=== PATIENT | female | born 1950 | race Caucasian/White ===

== ENCOUNTER 2017-01-26 10:45 | Inpatient (IN) ==
[2017-01-26] MEDS ORDERED: NS 2,000 ML ONE (11:17)
[2017-01-26] MEDS ORDERED: NS 1,000 ML IV ONE ×2 (11:26→12:39)
[2017-01-26 11:38] LABS: MANUAL DIFF NEEDED? NO
--- NOTE | 2017-01-26 11:40 | Diag Imaging Result Doc PS360 ---
EXAM: CHEST-PORTABLE HISTORY: SOB/low oxygen sat TECHNIQUE: AP portable upright at 1130 COMMENT: There is alveolar opacity in both the apical region of the right upper lobe and in the right lower lobe. The left lung is essentially unchanged in appearance since 11/22/2015. IMPRESSION: Bronchopneumonia on the right in both the upper and lower lobes. Electronically signed by Rodriguez Blnakenship 01/26/2017 11:38 AM
[2017-01-26 11:41] LABS: BASO% 0.2 % (0.0-0.8); EOS# 0.03 X1000 (0.0-0.7); EOS% 0.3 % (0.0-10.0); HEMATOCRIT 41.2 % (37.0-47.0); HEMOGLOBIN 13.6 g/dL (12.0-16.0); IMM GRAN# 0.02 X1000 (0.0-0.04); IMM GRAN% 0.2 % (0.0-0.5); LYMPH# 0.98 X1000 (1.2-3.4); LYMPH% 10.5 % (20.5-51.1); MCH 30.4 PG (27-31); MONO# 1.16 X1000 (0.11-0.59); MONO% 12.4 % (1.7-9.3); MPV 9.3 FL (7.4-10.4); NEUT% 76.4 % (42.2-75.2); PLT 484 X1000 (130-400); RBC 4.48 XMIL (4.2-5.4)
[2017-01-26 11:54] LABS: INR 0.96; PROTIME 10.1 Seconds (9.2-11.7); PTT 29.4 Seconds (22.0-36.0)
[2017-01-26 12:06] LABS: AGAP 12; ALKALINE PHOSPHATASE 77 U/L (32-104); BUN 25 mg/dL (8-22); CHLORIDE 101 mmol/L (98-107); CK PROFILE 167 U/L (24-173); COSMO 277; GOT 18 U/L (10-30); GPT 16 U/L (10-36); SODIUM 136 mmol/L (136-145); TCO2 23 mmol/L (25-35); TOTAL BILIRUBIN 0.36 mg/dL (0.20-1.00); TOTAL PROTEIN 6.1 g/dL (6.3-8.3)
[2017-01-26] MEDS ORDERED: ROCEPHIN 2 GM in NS 50 ML IV ONE (12:35)
[2017-01-26] MEDS ORDERED: ATROVENT NEB INH ONE (12:39)
[2017-01-26] MEDS ORDERED: XOPENEX NEB INH ONE (12:39)
[2017-01-26] MEDS ORDERED: KLOR-CON PO ONE (12:40)
[2017-01-26] MEDS ORDERED: NS NEB INH SCH (12:45)
[2017-01-26] MEDS ORDERED: NS 50 ML ONE (12:54)
[2017-01-26 12:56] LABS: ALLEN TEST YES; BE -4.4 mmoll (-3.0-3.0); BLOOD TYPE ARTERIAL; DRAW SITE R RADIAL; PCO2(98.6) 39 mmHg (35-45); PO2(98.6) 50 mmHg (60-100); SAMPLE BLOOD
[2017-01-26 12:58] LABS: MODALITY CANNULA
[2017-01-26 12:59] LABS: pH(98.6) 7.34 (7.35-7.45)
[2017-01-26] MEDS ORDERED: KLOR-CON ONE (13:08)
[2017-01-26] MEDS ORDERED: NICODERM PATCH ONE (14:04)
[2017-01-26] MEDS: NICODERM PATCH TD SCH (14:06)
--- NOTE | 2017-01-26 15:36 | EKG Report ---
Test Performed on : 01/26/2017 3:10:06 PM Test Reason : baseline rythm analysis Blood Pressure : / mmHG Vent. Rate : 076 BPM Atrial Rate : 076 BPM P-R Int : 106 ms QRS Dur : 080 ms QT Int : 332 ms P-R-T Axes : -03 076 049 degrees QTc Int : 373 ms Sinus rhythm. with short MO Nonspecific T wave abnormality Abnormal ECG When compared with ECG of 13-DEC-2014 17:06, premature supraventricular complexes. are no longer present T wave inversion no longer evident in Anterior leads Nonspecific T wave abnormality, worse in Lateral leads QT has shortened Unconfirmed Result
[2017-01-26] MEDS ORDERED: TYLENOL PO PRN (15:42)
[2017-01-26] MEDS: ATROVENT NEB INH SCH ×2 (16:55→21:00)
[2017-01-26] MEDS: XOPENEX NEB INH SCH ×2 (17:10→21:00)
[2017-01-26] MEDS: PULMICORT INH SCH (19:20)
[2017-01-26] MEDS: MUCOMYST 20% INH SCH (19:20)
[2017-01-26] MEDS: DESYREL PO SCH (21:11)
[2017-01-26] MEDS: PRAVACHOL PO SCH (21:11)
[2017-01-26] MEDS: KLONOPIN PO PRN (21:20)
[2017-01-27] MEDS: TRUSOPT 2% OPH SOLN BOTH EYES SCH ×4 (02:07→17:23)
[2017-01-27] MEDS: XOPENEX NEB INH SCH ×4 (03:08→22:15)
[2017-01-27] MEDS: ATROVENT NEB INH SCH ×4 (03:08→22:15)
[2017-01-27 04:31] LABS: URINE MICRO REVIEW NEEDED? NO; URINE SOURCE CLEAN CATCH
[2017-01-27 04:34] LABS: BILIRUBIN URINE NEGATIVE (NEGATIVE); BLOOD URINE TRACE (NEGATIVE); COLOR YELLOW; GLUCOSE URINE NEGATIVE (NEGATIVE); LEUKOCYTES URINE SMALL (NEGATIVE); NITRITE URINE NEGATIVE (NEGATIVE); PH URINE 6.5; PROTEIN URINE TRACE mg/dL (NEGATIVE); SP GRAVITY URINE 1.017; TURBIDITY URINE CLEAR (CLEAR); UROBILINOGEN URINE NORMAL (NORMAL)
[2017-01-27 04:35] LABS: UR EPITHELIAL CELLS <10 /HPF (<10); URINE BACTERIA NEGATIVE /HPF; URINE CULTURE NEEDED? YES; URINE RBC <10 /HPF (<10); URINE WBC <10 /HPF (<10)
[2017-01-27 05:21] LABS: MANUAL DIFF NEEDED? NO
[2017-01-27 05:31] LABS: BASO% 0.2 % (0.0-0.8); EOS% 0.9 % (0.0-10.0); HEMOGLOBIN 12.7 g/dL (12.0-16.0); IMM GRAN# 0.03 X1000 (0.0-0.04); IMM GRAN% 0.3 % (0.0-0.5); LYMPH# 0.67 X1000 (1.2-3.4); LYMPH% 5.9 % (20.5-51.1); MCH 30.8 PG (27-31); MCHC 33.4 g/dL (33-37); MCV 92.2 FL (81-99); MONO# 0.92 X1000 (0.11-0.59); MONO% 8.1 % (1.7-9.3); MPV 9.3 FL (7.4-10.4); NEUT% 84.6 % (42.2-75.2); PLT 496 X1000 (130-400); RBC 4.12 XMIL (4.2-5.4)
[2017-01-27 05:49] LABS: AGAP 12; ALBUMIN 2.7 g/dL (3.5-5.0); ALKALINE PHOSPHATASE 67 U/L (32-104); BUN 15 mg/dL (8-22); CALCIUM 8.3 mg/dL (8.8-10.2); CHLORIDE 106 mmol/L (98-107); COSMO 282; GOT 19 U/L (10-30); GPT 15 U/L (10-36); POTASSIUM 3.3 mmol/L (3.5-5.1); SODIUM 141 mmol/L (136-145); TCO2 23 mmol/L (25-35); TOTAL BILIRUBIN 0.18 mg/dL (0.20-1.00); TOTAL PROTEIN 5.5 g/dL (6.3-8.3)
[2017-01-27] MEDS: PRILOSEC PO SCH (06:08)
[2017-01-27] MEDS ORDERED: LOVENOX SUBQ SCH ×3 (08:00→10:52)
[2017-01-27] MEDS ORDERED: KLOR-CON PO ONE (08:25)
[2017-01-27] MEDS: PULMICORT INH SCH ×2 (09:17→19:15)
[2017-01-27] MEDS: MUCOMYST 20% INH SCH ×2 (09:17→19:15)
[2017-01-27] MEDS: CELEXA PO SCH (10:45)
[2017-01-27] MEDS: NICODERM PATCH TD SCH ×2 (10:46→11:02)
[2017-01-27] MEDS ORDERED: ROCEPHIN 1 GM in NS 50 ML IV SCH (12:00)
[2017-01-27] MEDS ORDERED: ZITHROMAX 500 MG/NS 500 MG/250 ML IVPB IV SCH (12:00)
[2017-01-27] MEDS: PRAVACHOL PO SCH (20:45)
[2017-01-27] MEDS: DESYREL PO SCH (20:46)
[2017-01-28] MEDS: ATROVENT NEB INH SCH (03:15)
[2017-01-28] MEDS: XOPENEX NEB INH SCH (03:15)
[2017-01-28] MEDS: PRILOSEC PO SCH ×2 (05:40→06:28)
[2017-01-28 05:43] LABS: BASO% 0.2 % (0.0-0.8); EOS# 0.05 X1000 (0.0-0.7); EOS% 0.4 % (0.0-10.0); HEMATOCRIT 37.7 % (37.0-47.0); HEMOGLOBIN 12.6 g/dL (12.0-16.0); IMM GRAN# 0.04 X1000 (0.0-0.04); IMM GRAN% 0.4 % (0.0-0.5); LYMPH# 0.82 X1000 (1.2-3.4); LYMPH% 7.3 % (20.5-51.1); MANUAL DIFF NEEDED? YES; MCH 30.5 PG (27-31); MCHC 33.4 g/dL (33-37); MCV 91.3 FL (81-99); MONO# 0.73 X1000 (0.11-0.59); MONO% 6.5 % (1.7-9.3); NEUT% 85.2 % (42.2-75.2); PLT 523 X1000 (130-400); RBC 4.13 XMIL (4.2-5.4)
[2017-01-28 05:44] LABS: HEMOGLOBIN A1C 5.3 % (4.8-6.0)
[2017-01-28 06:10] LABS: AGAP 10; BUN 7 mg/dL (8-22); CALCIUM 8.7 mg/dL (8.8-10.2); CHLORIDE 104 mmol/L (98-107); COSMO 279; POTASSIUM 3.7 mmol/L (3.5-5.1); SODIUM 139 mmol/L (136-145); TCO2 25 mmol/L (25-35)
[2017-01-28 06:46] LABS: BANDS 8 % (0-1); LYMPHS 8 % (21-51); MONO 6 % (1-9)
[2017-01-28 08:49] VITALS: BP 165/112
[2017-01-28] MEDS: KLONOPIN PO PRN (09:01)
[2017-01-28] MEDS: CELEXA PO SCH (09:02)
[2017-01-28] MEDS: TRUSOPT 2% OPH SOLN BOTH EYES SCH (09:03)
== END 2017-01-28 09:36 | disposition left against medical advice (07) ==
LOC: ED 10:45 → 4N 15:31
PROVIDERS: ATTEND Internal Medicine

== ENCOUNTER 2019-04-12 12:49 | Inpatient (IN) ==
[2019-04-12 13:11] LABS: BLOOD TYPE ARTERIAL; HCO3-(ACT) 25.1 mmoll (20.0-26.0); METHB 0.9 % (0.0-1.5); O2(CT) 18.4 mL/dL (15.0-23.0); PO2(98.6) 237 mmHg (60-100); SAMPLE BLOOD; THB 15.9 g/dL (11.5-17.4)
[2019-04-12] MEDS ORDERED: DUONEB (A & A) INH ONE (13:17)
[2019-04-12 13:48] LABS: PCO2(98.6) 72 mmHg (35-45); pH(98.6) 7.24 (7.35-7.45)
[2019-04-12 13:49] LABS: ALLEN TEST YES; MODALITY NRB; O2HB 79.9 % (95.0-99.0)
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
[2019-04-12 14:19] LABS: BASO# 0.03 X1000 (0.0-0.2); BASO% 0.2 % (0.0-0.8); EOS# 0.09 X1000 (0.0-0.7); EOS% 0.6 % (0.0-10.0); HEMATOCRIT 47.3 % (37.0-47.0); HEMOGLOBIN 15.2 g/dL (12.0-16.0); IMM GRAN# 0.03 X1000 (0.0-0.04); IMM GRAN% 0.2 % (0.0-0.5); LYMPH# 1.36 X1000 (1.2-3.4); LYMPH% 9.6 % (20.5-51.1); MCH 31.3 PG (27-31); MCHC 32.1 g/dL (33-37); MCV 97.3 FL (81-99); MONO# 1.05 X1000 (0.11-0.59); MONO% 7.4 % (1.7-9.3); MPV 9.4 FL (7.4-10.4); NEUT# 11.58 X1000 (1.4-6.5); PLT 283 X1000 (130-400); RBC 4.86 XMIL (4.2-5.4); RDW 15.1 % (11.5-14.5); WBC 14.14 X1000 (4.8-10.8)
[2019-04-12 14:42] LABS: AGAP 11; ALBUMIN 4.3 g/dL (3.5-5.0); ALKALINE PHOSPHATASE 98 U/L (32-104); BUN 19 mg/dL (8-22); CALCIUM 8.9 mg/dL (8.8-10.2); CHLORIDE 102 mmol/L (98-107); COSMO 289; ESTIMATED GFR 55; GLUCOSE 192 mg/dL (70-104); GOT 26 U/L (10-30); GPT 21 U/L (10-36); POTASSIUM 4.6 mmol/L (3.5-5.1); SODIUM 141 mmol/L (136-145); TCO2 28 mmol/L (25-35); TOTAL BILIRUBIN < 0.15 mg/dL (0.20-1.00); TOTAL PROTEIN 6.9 g/dL (6.3-8.3)
[2019-04-12] MEDS ORDERED: ZOFRAN IV PRN (14:42)
--- NOTE | 2019-04-12 14:42 | Diag Imaging Result Doc PS360 ---
CHEST-PORTABLE - 04/12/2019 INDICATION: sob COMPARISON: 06/11/2018 FINDINGS: Stable COPD changes. No infiltrates or edema. Stable benign granulomas in the lateral left lung base. IMPRESSION: No acute disease or change from prior. Electronically signed by Morgan Skinner 04/12/2019 2:39 PM
[2019-04-12] MEDS ORDERED: NS 1,000 ML IV SCH (14:45)
[2019-04-12] MEDS ORDERED: DUONEB (A & A) INH PRN ×2 (14:46→17:53)
[2019-04-12 15:20] LABS: URINE SOURCE CATH
[2019-04-12 15:26] LABS: BILIRUBIN URINE NEGATIVE (NEGATIVE); BLOOD URINE NEGATIVE (NEGATIVE); COLOR YELLOW; GLUCOSE URINE NEGATIVE (NEGATIVE); KETONE URINE NEGATIVE (NEGATIVE); LEUKOCYTES URINE NEGATIVE (NEGATIVE); NITRITE URINE NEGATIVE (NEGATIVE); PH URINE 5.5; PROTEIN URINE TRACE mg/dL (NEGATIVE); SP GRAVITY URINE 1.025; TURBIDITY URINE CLEAR (CLEAR); UROBILINOGEN URINE 3 mg/dL (NORMAL)
[2019-04-12 15:27] LABS: UR EPITHELIAL CELLS <10 /HPF (<10); URINE BACTERIA NEGATIVE /HPF; URINE RBC <10 /HPF (<10); URINE WBC <10 /HPF (<10)
[2019-04-12] MEDS ORDERED: DUONEB (A & A) INH SCH (15:30)
[2019-04-12 15:33] LABS: UR AMPHETAMINES QUAL NONE DETECTED (NONE DETECT); UR BARBITUATES QUAL NONE DETECTED (NONE DETECT); UR BENZODIAZEPIN QUAL PRESUMPTIVE POSITIVE (NONE DETECT); UR CANNABINOIDS QUAL PRESUMPTIVE POSITIVE (NONE DETECT); UR COCAINE QUAL NONE DETECTED (NONE DETECT); UR METHADONE QUAL NONE DETECTED (NONE DETECT); UR METHAMPHETAMINE QUAL NONE DETECTED (NONE DETECT); UR OPIATES QUAL NONE DETECTED (NONE DETECT); UR OXYCODONE QUAL NONE DETECTED (NONE DETECT); UR PCP QUAL NONE DETECTED (NONE DETECT); UR PROPOXYPHENE QUAL NONE DETECTED (NONE DETECT); UR TCA QUAL NONE DETECTED (NONE DETECT)
[2019-04-12] MEDS ORDERED: HUMALOG (PARKWAY) SUBQ SCH (16:00)
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
[2019-04-12] MEDS: ZOFRAN IV PRN ×2 (18:30→22:36)
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
[2019-04-12 19:01] LABS: ALLEN TEST YES; BE 2.9 mmoll (-3.0-3.0); BLOOD TYPE ARTERIAL; METHB 0.6 % (0.0-1.5); O2HB 91.2 % (95.0-99.0); PO2(98.6) 234 mmHg (60-100); SAMPLE BLOOD; SAO2 99.5 % (95.0-100.0); pH(98.6) 7.21 (7.35-7.45)
[2019-04-12 19:05] LABS: MODALITY NRB; PCO2(98.6) 86 mmHg (35-45)
[2019-04-12] MEDS: DUONEB (A & A) INH SCH ×2 (19:26→23:45)
[2019-04-12] MEDS: NS 1,000 ML IV SCH ×2 (19:38→22:39)
[2019-04-12] MEDS: HUMALOG SUBQ SCH (20:29)
[2019-04-12 20:51] LABS: ALLEN TEST YES; BE 2.5 mmoll (-3.0-3.0); BLOOD TYPE ARTERIAL; HCO3-(ACT) 26.6 mmoll (20.0-26.0); METHB 0.9 % (0.0-1.5); O2(CT) 20.5 mL/dL (15.0-23.0); O2HB 90.3 % (95.0-99.0); PO2(98.6) 87 mmHg (60-100); SAMPLE BLOOD; SAO2 97.6 % (95.0-100.0); THB 16.1 g/dL (11.5-17.4); pH(98.6) 7.24 (7.35-7.45)
[2019-04-12 20:52] LABS: MODALITY VENTIMASK
[2019-04-12 20:56] LABS: PCO2(98.6) 77 mmHg (35-45)
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
[2019-04-13] MEDS: DUONEB (A & A) INH SCH ×6 (03:30→22:53)
[2019-04-13 04:09] LABS: ALLEN TEST YES; BE 1.2 mmoll (-3.0-3.0); BLOOD TYPE ARTERIAL; HCO3-(ACT) 25.7 mmoll (20.0-26.0); METHB 0.9 % (0.0-1.5); O2(CT) 20.3 mL/dL (15.0-23.0); O2HB 93.1 % (95.0-99.0); PO2(98.6) 90 mmHg (60-100); SAMPLE BLOOD; SAO2 97.6 % (95.0-100.0); THB 15.5 g/dL (11.5-17.4); pH(98.6) 7.21 (7.35-7.45)
[2019-04-13 04:22] LABS: MODALITY VENTIMASK; PCO2(98.6) 80 mmHg (35-45)
[2019-04-13 05:55] LABS: BASO# 0.03 X1000 (0.0-0.2); BASO% 0.2 % (0.0-0.8); EOS# 0.03 X1000 (0.0-0.7); EOS% 0.2 % (0.0-10.0); HEMATOCRIT 47.4 % (37.0-47.0); HEMOGLOBIN 14.6 g/dL (12.0-16.0); IMM GRAN# 0.06 X1000 (0.0-0.04); IMM GRAN% 0.4 % (0.0-0.5); LYMPH# 1.76 X1000 (1.2-3.4); LYMPH% 12.5 % (20.5-51.1); MCH 30.6 PG (27-31); MCHC 30.8 g/dL (33-37); MCV 99.4 FL (81-99); MONO# 1.07 X1000 (0.11-0.59); MONO% 7.6 % (1.7-9.3); MPV 9.8 FL (7.4-10.4); NEUT# 11.12 X1000 (1.4-6.5); NEUT% 79.1 % (42.2-75.2); PLT 265 X1000 (130-400); RBC 4.77 XMIL (4.2-5.4); WBC 14.07 X1000 (4.8-10.8)
[2019-04-13 06:00] LABS: AGAP 11; ALB/GLOB RATIO 1.6; ALBUMIN 3.6 g/dL (3.5-5.0); ALKALINE PHOSPHATASE 90 U/L (32-104); BUN 16 mg/dL (8-22); CALCIUM 8.2 mg/dL (8.8-10.2); CHLORIDE 101 mmol/L (98-107); COSMO 280; CREATININE 0.8 mg/dL (0.5-0.9); ESTIMATED GFR > 60; GLUCOSE 96 mg/dL (70-104); GOT 18 U/L (10-30); GPT 18 U/L (10-36); POTASSIUM 4.6 mmol/L (3.5-5.1); SODIUM 140 mmol/L (136-145); TCO2 28 mmol/L (25-35); TOTAL BILIRUBIN 0.19 mg/dL (0.20-1.00); TOTAL PROTEIN 5.9 g/dL (6.3-8.3)
[2019-04-13] MEDS: NS 1,000 ML IV SCH (06:16)
[2019-04-13] MEDS: HUMALOG SUBQ SCH ×4 (06:37→21:03)
[2019-04-13] MEDS ORDERED: TYLENOL PO PRN (06:43)
[2019-04-13 07:36] LABS: ACETAMINOPHEN < 1.2 ug/mL (10-30); SALICYLATES < 3.00 mg/dL (3-10)
--- NOTE | 2019-04-13 07:47 | Diag Imaging Result Doc PS360 ---
CHEST-PORTABLE - 04/13/2019 INDICATION: short of breath COMPARISON: 04/12/2019 FINDINGS: There is worsening pulmonary vascular congestion. There is now some mild residual pulmonary edema centrally. There are trace pleural effusions. Heart size is borderline enlarged. IMPRESSION: Worsening pulmonary edema and trace pleural effusions. Electronically signed by Morgan Skinner 04/13/2019 7:45 AM
[2019-04-13] MEDS ORDERED: LASIX IV ONE (09:06)
[2019-04-13 09:31] LABS: ALLEN TEST YES; BE 2.4 mmoll (-3.0-3.0); BLOOD TYPE ARTERIAL; HCO3-(ACT) 26.5 mmoll (20.0-26.0); METHB 0.6 % (0.0-1.5); O2(CT) 18.4 mL/dL (15.0-23.0); PO2(98.6) 51 mmHg (60-100); SAMPLE BLOOD; SAO2 90.6 % (95.0-100.0); THB 15.1 g/dL (11.5-17.4); pH(98.6) 7.26 (7.35-7.45)
[2019-04-13 09:34] LABS: PCO2(98.6) 71 mmHg (35-45)
[2019-04-13 09:35] LABS: MODALITY VENTIMASK
[2019-04-13] MEDS: LOVENOX SUBQ SCH (09:39)
[2019-04-13] MEDS: CLINIMIX E 4.25%-5% SOLUTION 1,000 ML IV SCH ×2 (09:39→22:16)
[2019-04-13] MEDS: ZOFRAN IV PRN ×2 (11:50→21:08)
[2019-04-13 16:40] LABS: ALLEN TEST YES; BLOOD TYPE ARTERIAL; HCO3-(ACT) 33.3 mmoll (20.0-26.0); METHB 1.2 % (0.0-1.5); O2HB 91.1 % (95.0-99.0); PO2(98.6) 57 mmHg (60-100); SAMPLE BLOOD; SAO2 94.4 % (95.0-100.0); THB 14.9 g/dL (11.5-17.4); pH(98.6) 7.43 (7.35-7.45)
[2019-04-13 16:44] LABS: MODALITY VENTIMASK; PCO2(98.6) 57 mmHg (35-45)
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
[2019-04-13] MEDS: AYR NASAL DROPS NAS PRN (17:56)
[2019-04-13] MEDS: NORCO-5 PO PRN (21:07)
[2019-04-13] MEDS ORDERED: SODIUM CHLORIDE 0.9% INJ SCH (21:15)
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
[2019-04-14] MEDS: DUONEB (A & A) INH SCH ×6 (03:02→23:16)
[2019-04-14 04:31] LABS: ALLEN TEST YES; BLOOD TYPE ARTERIAL; HCO3-(ACT) 31.1 mmoll (20.0-26.0); METHB 1.4 % (0.0-1.5); O2(CT) 20.2 mL/dL (15.0-23.0); O2HB 94.9 % (95.0-99.0); PO2(98.6) 95 mmHg (60-100); SAMPLE BLOOD; SAO2 97.8 % (95.0-100.0); THB 15.1 g/dL (11.5-17.4); pH(98.6) 7.38 (7.35-7.45)
[2019-04-14 04:39] LABS: MODALITY VENTIMASK; PCO2(98.6) 60 mmHg (35-45)
[2019-04-14 05:17] LABS: HEMATOCRIT 44.8 % (37.0-47.0); HEMOGLOBIN 14.1 g/dL (12.0-16.0); MCH 30.9 PG (27-31); MCHC 31.5 g/dL (33-37); MPV 9.7 FL (7.4-10.4); RBC 4.57 XMIL (4.2-5.4); RDW 14.6 % (11.5-14.5); WBC 10.86 X1000 (4.8-10.8)
[2019-04-14 05:48] LABS: AGAP 8; ALB/GLOB RATIO 1.5; ALBUMIN 3.3 g/dL (3.5-5.0); ALKALINE PHOSPHATASE 79 U/L (32-104); BUN 20 mg/dL (8-22); CALCIUM 8.5 mg/dL (8.8-10.2); CHLORIDE 99 mmol/L (98-107); COSMO 281; CREATININE 0.8 mg/dL (0.5-0.9); ESTIMATED GFR > 60; GLUCOSE 109 mg/dL (70-104); GOT 15 U/L (10-30); GPT 14 U/L (10-36); POTASSIUM 4.4 mmol/L (3.5-5.1); SODIUM 139 mmol/L (136-145); TCO2 32 mmol/L (25-35); TOTAL BILIRUBIN 0.35 mg/dL (0.20-1.00); TOTAL PROTEIN 5.5 g/dL (6.3-8.3)
[2019-04-14] MEDS: PROTONIX IV SCH (06:03)
[2019-04-14] MEDS: HUMALOG SUBQ SCH ×4 (06:07→20:22)
--- NOTE | 2019-04-14 07:29 | Diag Imaging Result Doc PS360 ---
EXAM: CHEST-1 VIEW INDICATION: dyspnea TECHNIQUE: One view COMPARISON: 04/13/2019 FINDINGS: Small pleural effusions, pulmonary venous congestion, and mild interstitial edema are approximately stable. No new consolidation is identified. Cardiac silhouette is stable. IMPRESSION: Essentially stable chest. Electronically signed by Mack Tafoya 04/14/2019 7:26 AM
[2019-04-14] MEDS: LOVENOX SUBQ SCH (08:15)
[2019-04-14] MEDS: FLONASE NAS SCH (09:56)
[2019-04-14] MEDS: CLINIMIX E 4.25%-5% SOLUTION 1,000 ML IV SCH (11:04)
--- NOTE | 2019-04-14 16:00 | PROGRESS NOTE ---
DATE: 04/14/2019 SUBJECTIVE: The patient is resting comfortably in bed. She complains of nasal congestion. OBJECTIVE: Vital Signs: Temperature 99 degrees, blood pressure 115/74, heart rate 68, respirations 20, O2 saturation is 94% on 3 L nasal cannula. Intake 3.1 L. Output 4.1 L. General: This is a chronically ill-appearing, elderly female lying in bed, in no acute distress. Heart: S1, S2 normal. Regular rate and rhythm. Lungs: Equal air entry bilaterally. No wheezing. Abdomen: Positive bowel sounds. Soft, nontender, nondistended. Extremities: No edema. No cyanosis. Neurologic: The patient is alert and oriented x3. LABS: White blood cell count 10, hemoglobin 14, hematocrit 44, platelets 224,000. Sodium 139, potassium 4.4, chloride 99, CO2 32, BUN 20, creatinine 0.8, glucose 109, AST 15, ALT 14, alkaline phosphatase 79. ASSESSMENT AND PLAN: 1. Acute hypoxemic and hypercapnic respiratory failure. Improved. Continue to monitor closely. Continue on oxygen and bronchodilator therapy. Management as per the train operator. 2. Metabolic encephalopathy. Resolved. 3. Diabetes mellitus type 2. The patient is on sliding scale insulin. 4. Tobacco dependence. The patient has been counseled about smoking cessation. 5. Constipation. Will start laxative therapy. 6. Gastrointestinal prophylaxis. Continue on Protonix. 7. Deep vein thrombosis prophylaxis. Continue on Lovenox. cc: Norma Lambert MD MTDD
[2019-04-14] MEDS: DULCOLAX PR SCH (20:22)
[2019-04-15] MEDS: DUONEB (A & A) INH SCH ×6 (03:29→23:17)
[2019-04-15] MEDS: NORCO-5 PO PRN ×3 (03:48→20:03)
[2019-04-15 04:29] LABS: ALLEN TEST YES; BE 8.9 mmoll (-3.0-3.0); BLOOD TYPE ARTERIAL; HCO3-(ACT) 31.7 mmoll (20.0-26.0); METHB 1.1 % (0.0-1.5); O2(CT) 20.8 mL/dL (15.0-23.0); O2HB 93.9 % (95.0-99.0); PCO2(98.6) 44 mmHg (35-45); PO2(98.6) 70 mmHg (60-100); SAMPLE BLOOD; SAO2 96.6 % (95.0-100.0); THB 15.8 g/dL (11.5-17.4); pH(98.6) 7.49 (7.35-7.45)
[2019-04-15 04:30] LABS: MODALITY CANNULA
[2019-04-15 05:20] LABS: HEMATOCRIT 44.9 % (37.0-47.0); HEMOGLOBIN 14.7 g/dL (12.0-16.0); MCH 31.1 PG (27-31); MCHC 32.7 g/dL (33-37); MCV 94.9 FL (81-99); MPV 9.5 FL (7.4-10.4); RBC 4.73 XMIL (4.2-5.4); RDW 14.7 % (11.5-14.5); WBC 9.64 X1000 (4.8-10.8)
[2019-04-15 05:32] LABS: AGAP 10; BUN 20 mg/dL (8-22); CALCIUM 9.1 mg/dL (8.8-10.2); CHLORIDE 96 mmol/L (98-107); COSMO 273; CREATININE 0.8 mg/dL (0.5-0.9); ESTIMATED GFR > 60; GLUCOSE 103 mg/dL (70-104); POTASSIUM 3.9 mmol/L (3.5-5.1); SODIUM 135 mmol/L (136-145); TCO2 29 mmol/L (25-35)
[2019-04-15] MEDS: HUMALOG SUBQ SCH ×4 (05:59→20:21)
[2019-04-15] MEDS: PROTONIX IV SCH (06:02)
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
--- NOTE | 2019-04-15 07:55 | EKG Report ---
Test Performed on : 04/15/2019 07:12:19 AM Test Reason : Baseline EKG Blood Pressure : / mmHG Vent. Rate : 069 BPM Atrial Rate : 069 BPM P-R Int : 114 ms QRS Dur : 088 ms QT Int : 428 ms P-R-T Axes : -03 050 020 degrees QTc Int : 458 ms Normal sinus rhythm. Normal ECG When compared with ECG of 11-JUN-2018 11:14, No significant change was found Confirmed by Deidre TAVARES, [place] ([id number]) on 04/15/2019 8:33:29 AM
[2019-04-15] MEDS ORDERED: ZOFRAN PO PRN (09:24)
[2019-04-15] MEDS: VALIUM PO SCH ×2 (09:33→20:04)
[2019-04-15] MEDS: FLONASE NAS SCH (09:33)
[2019-04-15] MEDS: LOVENOX SUBQ SCH (09:33)
[2019-04-15] MEDS: CYMBALTA PO SCH ×2 (09:43→20:03)
[2019-04-15] MEDS: COSOPT OPHTH SOLN BOTH EYES SCH ×2 (10:30→22:47)
[2019-04-15] MEDS: MIRALAX PO SCH ×2 (11:08→20:05)
[2019-04-15] MEDS: SEROQUEL PO SCH (20:04)
[2019-04-15] MEDS: PRAVACHOL PO SCH (20:05)
[2019-04-15] MEDS: XALATAN 0.005% OPH SOLN BOTH EYES SCH (20:08)
[2019-04-15] MEDS: DULCOLAX PR SCH (20:20)
[2019-04-15] MEDS: AYR NASAL DROPS NAS PRN (22:48)
[2019-04-16] MEDS: DUONEB (A & A) INH SCH ×5 (03:42→19:27)
[2019-04-16] MEDS: HUMALOG SUBQ SCH ×4 (06:18→20:27)
[2019-04-16 06:20] LABS: AGAP 10; BUN 21 mg/dL (8-22); CHLORIDE 98 mmol/L (98-107); COSMO 275; CREATININE 0.8 mg/dL (0.5-0.9); ESTIMATED GFR > 60; GLUCOSE 106 mg/dL (70-104); POTASSIUM 3.9 mmol/L (3.5-5.1); SODIUM 136 mmol/L (136-145); TCO2 28 mmol/L (25-35)
--- NOTE | 2019-04-16 07:09 | Diag Imaging Result Doc PS360 ---
EXAM: CHEST-PORTABLE HISTORY: Evaluate for pleural effusion TECHNIQUE: Single view COMPARISON: 04/14/2019 FINDINGS: Basilar atelectasis and infiltrates are less pronounced on the current exam. The lungs are well expanded. No cardiomegaly. No pulmonary edema. Questionable tiny effusions. IMPRESSION: Mild interval improvement Electronically signed by Delvis Green 04/16/2019 7:07 AM
[2019-04-16] MEDS ORDERED: LASIX IV ONE (07:32)
[2019-04-16] MEDS: NICODERM PATCH TD PRN (08:00)
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
[2019-04-16] MEDS: LOVENOX SUBQ SCH (09:22)
[2019-04-16] MEDS: THERA M PLUS PO SCH (09:22)
[2019-04-16] MEDS: FLONASE NAS SCH (09:22)
[2019-04-16] MEDS: VALIUM PO SCH ×2 (09:22→20:21)
[2019-04-16] MEDS: CYMBALTA PO SCH ×2 (09:22→20:22)
[2019-04-16] MEDS: COSOPT OPHTH SOLN BOTH EYES SCH ×3 (09:23→20:51)
[2019-04-16] MEDS: MIRALAX PO SCH ×2 (09:23→20:25)
[2019-04-16] MEDS: NORCO-5 PO PRN ×2 (09:27→20:22)
[2019-04-16] MEDS: AYR NASAL DROPS NAS PRN ×2 (10:52→20:17)
--- NOTE | 2019-04-16 13:34 | ECHO REPORT ---
ORDER DATE: 04/16/2019 INDICATION: Pleural effusions. FINDINGS: 1. The right atrium appears normal in size at 3.9 cm. 2. Mild tricuspid regurgitation. Insufficient data accurately estimated the RV systolic pressure. 3. Normal RV size and systolic function. 4. No significant pulmonic insufficiency. 5. The left atrium appears normal in size with a volume index of 23. 6. No mitral valve prolapse. Mild mitral regurgitation. 7. Normal LV size, end-diastolic dimension of 3.8 cm. No evidence of left ventricular hypertrophy with posterior and interventricular septal wall thickness of 1.0 and 0.9 cm respectively. Normal LV systolic function. There is an estimated ejection fraction of 55%. No clear evidence of segmental wall motion abnormalities is identified. This is a somewhat difficult study. 8. Aortic valve opens well. There is no clear evidence of stenosis or insufficiency. 9. Aorta appears normal in visualized segments. 10. No pericardial effusion seen. 11. The IVC appears to be normal in size with good collapse suggesting normal right-sided pressures. cc: MD Chavez Taylor MD
[2019-04-16] MEDS: XALATAN 0.005% OPH SOLN BOTH EYES SCH (20:20)
[2019-04-16] MEDS: SEROQUEL PO SCH (20:21)
[2019-04-16] MEDS: PRAVACHOL PO SCH (20:22)
[2019-04-16] MEDS: DULCOLAX PR SCH (20:25)
[2019-04-17] MEDS: DUONEB (A & A) INH SCH ×5 (03:16→11:42)
[2019-04-17 06:36] LABS: BASO# 0.02 X1000 (0.0-0.2); BASO% 0.4 % (0.0-0.8); EOS# 0.29 X1000 (0.0-0.7); EOS% 5.3 % (0.0-10.0); HEMATOCRIT 48.2 % (37.0-47.0); HEMOGLOBIN 15.7 g/dL (12.0-16.0); LYMPH% 25.5 % (20.5-51.1); MCH 30.4 PG (27-31); MCHC 32.6 g/dL (33-37); MCV 93.2 FL (81-99); MONO# 0.82 X1000 (0.11-0.59); MONO% 14.9 % (1.7-9.3); NEUT# 2.96 X1000 (1.4-6.5); NEUT% 53.9 % (42.2-75.2); PLT 242 X1000 (130-400); RBC 5.17 XMIL (4.2-5.4); RDW 14.4 % (11.5-14.5); WBC 5.49 X1000 (4.8-10.8)
[2019-04-17] MEDS: HUMALOG SUBQ SCH ×2 (06:44→11:36)
[2019-04-17 07:10] LABS: CALCIUM 9.3 mg/dL (8.8-10.2); CREATININE 1.2 mg/dL (0.5-0.9); POTASSIUM 4.2 mmol/L (3.5-5.1)
[2019-04-17] MEDS: LOVENOX SUBQ SCH (08:21)
[2019-04-17] MEDS: FLONASE NAS SCH (08:21)
[2019-04-17] MEDS: THERA M PLUS PO SCH (08:21)
[2019-04-17] MEDS: NICODERM PATCH TD PRN (08:21)
[2019-04-17] MEDS: VALIUM PO SCH (08:21)
[2019-04-17] MEDS: CYMBALTA PO SCH (08:21)
[2019-04-17] MEDS: MIRALAX PO SCH (08:22)
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
[2019-04-17] MEDS: COSOPT OPHTH SOLN BOTH EYES SCH (08:30)
[2019-04-17 09:16] VITALS: BP 135/90
[2019-04-17] MEDS ORDERED: FLU VACCINE IM ONE (13:12)
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
== END 2019-04-17 14:59 | disposition home or self-care (01) | DRG 917 ==
LOC: P.ED 12:49 → SUATTDRO 17:38 → ICU 17:38 → 4N 04-17 09:09
PROVIDERS: ATTEND Internal Medicine

== ENCOUNTER 2019-04-25 21:05 | Inpatient (IN) ==
[2019-04-25] MEDS ORDERED: NS 1,000 ML ONE (21:37)
--- NOTE | 2019-04-25 21:37 | PROVIDER DOCUMENTATION ---
HPI-General Adult - General Chief Complaint: Suicide Attempt Stated Complaint: overdose Time Seen by Provider: 04/25/19 21:12 Source: RN/MD, EMS Unable to obtain history due to:: altered Allergies/Adverse Reactions: Patient Allergies Allergy/AdvReac Type Severity Reaction Status Date / Time Unable to Assess Allergy Verified 04/25/19 22:11 Home Medications: Home Medication List Medication Instructions Recorded Confirmed Last Taken Type Diazepam 5 mg PO PRN PRN 04/25/19 04/25/19 Unknown History Duloxetine HCl 20 mg PO BID 04/25/19 04/25/19 Unknown History Mirtazapine 30 mg PO QPM 04/25/19 04/25/19 Unknown History Olanzapine 5 mg PO QPM 04/25/19 04/25/19 Unknown History Trazodone HCl 150 mg PO QPM 04/25/19 04/25/19 Unknown History - History of Present Illness -Gen Adult Nature of Presenting Problems: 66yo female presents via EMS with concerns of overdose. Per EMS/Nurse report the patient was found by caregiver today with a bottle of benzos and a note stating she needed to get something out of her head. The patient medications do show SNRI as well as antipsychotics. EMS did try narcan with minimal improvement. The patient was noted to be hypotensive enroute. Estimated time of ingestion was sometime today. Onset/Duration: reports: other (today) Associated Symptoms: reports: other (hypotension) Review of Systems - Adult - REVIEW OF SYSTEMS - ADULT ROS:: unobtainable per condition Constitutional: reports: no symptoms reported (unable to obtain 2/2 patient ment al status) Past History - Adult - PAST MEDICAL HISTORY-ADULT Review of Records: reports: Old Records Reviewed (no records noted) Physical Exam-General - PHYSICAL EXAM-ADULT Initial Vital Signs Reviewed: Yes - CONSTITUTIONAL General Appearance: obtunded - EYES Eyes: other (pupils fixed but not dialated, they are approximately 2mm). negative: conjuctival exudate, scleral icterus - HEAD, EARS, NOSE, MOUTH & THROAT HENMT: normocephalic/atraumatic, moist mucous membranes - RESPIRATORY Respiratory: normal breath sounds, no respiratory distress, rhonchi - CARDIOVASCULAR Cardiovascular: regular rate, rhythm, no edema - GASTROINTESTINAL (ABDOMEN) Abdominal Exam: non tender, soft - MUSCULOSKELETAL Extremity: other (Extremities without acute injury noted. Scars noted on the left wrist.) - SKIN Integumentary: normal color, warm/dry, ecchymosis (multiple ecchymosis noted, one on the abdomen and a second on the right kebede) - NEUROLOGIC Neurologic: other (patient current obtunted, GCS of 8) - PSYCHIATRIC Psych/Mental Status: other (obtunded) Progress - PLAN OF CARE/RESULTS Progress/Plan/Lab Results: Vital Signs - 8 hr 04/25/19 21:08 Pulse Rate 85 Respiratory Rate 22 Blood Pressure 84/67 O2 Sat by Pulse Oximetry 97 Orders Category Date Time Status 0.9% Sodium Chloride Inj [Ns] 1,000 ml Med 04/25/19 21:37 Discontinued .ROUTE As directed Result Diagrams: 04/25/19 21:27 04/25/19 21:27 - REASSESSMENT Reassessment #1 Status: other (Patient was discussed with poisen control and they recomended observation with supportive care. Patient given another dose of narcan given methadone noted in the urine. The patient patient BP did improve and map increase to 70s with fluid bolus. The case was discussed with the hospitalist team who has accepted the patient, and requested that she be intubated given tenuous status. The patient patient was intubated without issue and will be admi tted to the hospitalist team.) Procedures - INTUBATION Airway Evaluation: Large/Loose Teeth Intubation Method: orotracheal Equipment: ETT, Glidescope Tube Size (cm): 7.5 Pretreated with 100% Oxygen?: Yes Breath Sounds after Intubation: equal ETT Primary Tube Confirmation: Capnometry CO2 Change, Direct Visualization, Tube placement verified on XRAY Intubation Complications: no complications Procedure Comment: Patient tolerated intubation without issues. Departure - Departure Date of Disposition Decision: 04/26/19 Time of Disposition Decision: 00:57 DIAGNOSIS: Overdose Qualifiers: Encounter type: initial encounter Injury intent: undetermined intent Qualified Code(s): T50.904A - Poisoning by unspecified drugs, medicaments and biological substances, undetermined, initial encounter Disposition: ADMITTED INPATIENT 09 Certified Medical Emergency: Emergent Condition: Serious Referrals and Follow-Ups: Sondra Cerna MD [Primary Care Provider] - - Critical Care Note This patient required my direct & personal management of CC.: No Attestation - Physician/ ALONSO Attestation Patient care was provided by Advanced Practice Provider:: No The physician spent face to face time with patient:: Yes Advanced Practice Provider documentation review:: Supervising physician onsite and consulted in the evaluation and care of this patient. The physician did have a face to face encounter with the patient. Glascow Coma Score - Glascow Coma Score Best Eye Response ([place]): (1) no response Best Verbal Response ([place]): (2) incomprehsible sounds Best Motor Response ([place]): (5) localizes to pain [place] Total: 8
[2019-04-25 21:55] LABS: ALLEN TEST YES; BE 1.9 mmoll (-3.0-3.0); BLOOD TYPE ARTERIAL; HCO3-(ACT) 26.2 mmoll (20.0-26.0); METHB 0.8 % (0.0-1.5); O2(CT) 18.8 mL/dL (15.0-23.0); PO2(98.6) 200 mmHg (60-100); SAMPLE BLOOD; SAO2 99.2 % (95.0-100.0); THB 14.6 g/dL (11.5-17.4); pH(98.6) 7.31 (7.35-7.45)
[2019-04-25 21:58] LABS: MODALITY CANNULA; O2HB 89.7 % (95.0-99.0); PCO2(98.6) 59 mmHg (35-45)
[2019-04-25] MEDS: NS 1,000 ML IV ONE ×2 (22:01→22:53)
[2019-04-25 22:03] LABS: URINE SOURCE CATH
[2019-04-25 22:30] LABS: ACETAMINOPHEN < 1.2 ug/mL (10-30); AGAP 10; ALB/GLOB RATIO 1.5; ALBUMIN 3.7 g/dL (3.5-5.0); ALKALINE PHOSPHATASE 76 U/L (32-104); BUN 21 mg/dL (8-22); CALCIUM 9.5 mg/dL (8.8-10.2); CHLORIDE 98 mmol/L (98-107); COSMO 286; CREATININE 1.3 mg/dL (0.5-0.9); ESTIMATED GFR 41; GLUCOSE 170 mg/dL (70-104); GOT 17 U/L (10-30); GPT 13 U/L (10-36); POTASSIUM 4.7 mmol/L (3.5-5.1); SALICYLATES < 3.00 mg/dL (3-10); SODIUM 140 mmol/L (136-145); TCO2 32 mmol/L (25-35); TOTAL BILIRUBIN 0.19 mg/dL (0.20-1.00); TOTAL PROTEIN 6.2 g/dL (6.3-8.3)
[2019-04-25 22:33] LABS: UR AMPHETAMINES QUAL NONE DETECTED (NONE DETECT); UR BARBITUATES QUAL NONE DETECTED (NONE DETECT); UR BENZODIAZEPIN QUAL PRESUMPTIVE POSITIVE (NONE DETECT); UR CANNABINOIDS QUAL PRESUMPTIVE POSITIVE (NONE DETECT); UR COCAINE QUAL NONE DETECTED (NONE DETECT); UR METHADONE QUAL PRESUMPTIVE POSITIVE (NONE DETECT); UR OPIATES QUAL NONE DETECTED (NONE DETECT); UR OXYCODONE QUAL NONE DETECTED (NONE DETECT); UR PCP QUAL NONE DETECTED (NONE DETECT)
[2019-04-25 22:33] LABS: BASO# 0.03 X1000 (0.0-0.2); BASO% 0.2 % (0.0-0.8); EOS# 0.01 X1000 (0.0-0.7); EOS% 0.1 % (0.0-10.0); HEMATOCRIT 45.3 % (37.0-47.0); HEMOGLOBIN 14.7 g/dL (12.0-16.0); IMM GRAN# 0.04 X1000 (0.0-0.04); IMM GRAN% 0.3 % (0.0-0.5); LYMPH# 1.07 X1000 (1.2-3.4); LYMPH% 7.8 % (20.5-51.1); MCH 30.5 PG (27-31); MCHC 32.5 g/dL (33-37); MONO# 0.59 X1000 (0.11-0.59); MONO% 4.3 % (1.7-9.3); MPV 9.4 FL (7.4-10.4); NEUT# 11.97 X1000 (1.4-6.5); NEUT% 87.3 % (42.2-75.2); PLT 372 X1000 (130-400); RBC 4.82 XMIL (4.2-5.4); RDW 14.5 % (11.5-14.5); WBC 13.71 X1000 (4.8-10.8)
[2019-04-25] MEDS ORDERED: NS 1,000 ML IV ONE (22:44)
[2019-04-25 22:59] LABS: BILIRUBIN URINE NEGATIVE (NEGATIVE); BLOOD URINE NEGATIVE (NEGATIVE); COLOR YELLOW; GLUCOSE URINE NEGATIVE (NEGATIVE); KETONE URINE NEGATIVE (NEGATIVE); LEUKOCYTES URINE NEGATIVE (NEGATIVE); NITRITE URINE NEGATIVE (NEGATIVE); PH URINE 5.5; PROTEIN URINE 70 mg/dL (NEGATIVE); SP GRAVITY URINE 1.019; TURBIDITY URINE HAZY (CLEAR); UROBILINOGEN URINE 2 mg/dL (NORMAL)
[2019-04-25] MEDS ORDERED: NARCAN IV ONE ×3 (23:08→23:50)
[2019-04-25 23:22] LABS: UR EPITHELIAL CELLS >10 /HPF (<10); URINE BACTERIA NEGATIVE /HPF; URINE CASTS NONE SEEN; URINE CRYSTALS NONE SEEN; URINE SMALL ROUND CELLS NONE SEEN; URINE WBC <10 /HPF (<10); URINE YEAST NONE SEEN
--- NOTE | 2019-04-25 23:24 | EKG Report ---
Test Performed on : 04/25/2019 9:58:54 PM Test Reason : Overdose Blood Pressure : / mmHG Vent. Rate : 073 BPM Atrial Rate : 073 BPM P-R Int : 160 ms QRS Dur : 094 ms QT Int : 482 ms P-R-T Axes : 071 083 063 degrees QTc Int : 531 ms Normal sinus rhythm. Possible Left atrial enlargement Cannot rule out Anterior infarct , age undetermined Prolonged QT Abnormal ECG No previous ECGs available Unconfirmed Result
[2019-04-25] MEDS ORDERED: NARCAN ONE (23:55)
[2019-04-26] MEDS ORDERED: QUELICIN IV ONE
[2019-04-26] MEDS ORDERED: AMIDATE IV ONE
[2019-04-26] MEDS ORDERED: QUELICIN ONE (00:10)
[2019-04-26 01:03] LABS: ALLEN TEST YES; BE 1.2 mmoll (-3.0-3.0); BLOOD TYPE ARTERIAL; HCO3-(ACT) 25.5 mmoll (20.0-26.0); METHB 0.9 % (0.0-1.5); O2(CT) 18.1 mL/dL (15.0-23.0); SAMPLE BLOOD; SAO2 93.8 % (95.0-100.0); SRATE 18 BPM; THB 14.9 g/dL (11.5-17.4); TVOL 500 mL; pH(98.6) 7.34 (7.35-7.45)
[2019-04-26] MEDS ORDERED: MORPHINE IV ONE (01:03)
[2019-04-26] MEDS ORDERED: THIAMINE 100 MG in NS 50 ML IV ONE (01:06)
[2019-04-26] MEDS ORDERED: MAGNESIUM SULFATE 2 GM/S.W.I. 2 GM/50 ML IVPB IV ONE (01:06)
[2019-04-26 01:07] LABS: MODALITY VENTILATOR; PCO2(98.6) 52 mmHg (35-45)
[2019-04-26 01:08] LABS: PO2(98.6) 59 mmHg (60-100)
[2019-04-26 01:09] LABS: O2HB 86.7 % (95.0-99.0)
[2019-04-26] MEDS ORDERED: DIPRIVAN 1% 1,000 MG/100 ML BOTTLE IV SCH (01:15)
--- NOTE | 2019-04-26 02:08 | HISTORY AND PHYSICAL ---
PRIMARY CARE PHYSICIAN: Dr. Sondra Cerna. REASON FOR ADMISSION: The patient found unresponsive at home. HISTORY OF PRESENT ILLNESS: Mrs Sanna Toussaint is a 68-year-old white woman with what appears to be some type of mood disorder. Her caregiver contacted EMS because the patient was unresponsive and obtunded. On arrival, the EMS noted there were a lot of Ativan pills scattered all over her bed. The patient had written a note stating that she wanted to get rid of the voices in her head that were driving her crazy. She also bid the family goodbye. Oddly enough, when EMS took the patient out of the house, her primary caregiver shut the door and has not even bothered to call or check on the patient. During the course of her stay in the ER, the patient was able to protect her airway for the 1st couple of hours. She mildly responded to IV Narcan. When I evaluated her, I noticed that she had hypopnea and she was mildly cyanotic around her lips. After receiving 0.6 mg of Narcan with no response, she was subsequently intubated for airway protection and ventilation. Currently, she is on the ventilator and is comfortable at this point in time. Otherwise, I am unable to get any other meaningful information. Prior to even intubating her, the patient did not even respond to intense sternal rubbing on several occasions despite receiving Narcan. REVIEW OF SYSTEMS: Could not be obtained. ALLERGIES: Could not be obtained. HOME MEDICATIONS: List consist of Valium 5 mg p.r.n., duloxetine 20 mg b.i.d., Remeron 30 mg q.p.m., olanzapine 5 mg q.p.m., and trazodone 50 mg q.p.m. I am unable to get any old records of this patient to dig up any history regarding i.e., her social history, surgical history, family history because there is no one to furnish me with this information. DIAGNOSTICS AND LABORATORY WORK: EKG showed QT prolongation, normal sinus rhythm; otherwise, no gross findings. Chest film post intubation, no gross infiltrates. ET tube in appropriate location. Labs: White count 13,000, hemoglobin and hematocrit 14 and 45, platelets 372,000, 87% neutrophils. Her repeat blood gas on 50% FiO2, tidal volume 500, PEEP of 5, rate of 18 is pH of 7.34, pCO2 of 52, PO2 of 59 on 50%, tidal volume of 500. PHYSICAL EXAMINATION: VITAL SIGNS: On examination, blood pressure 154/104, heart rate is 76, respiratory rate is 18, FiO2 is 100%. Afebrile. HEENT: She is middle-aged white woman Venti mask in place of a nasal trumpet in the left naris. She is mildly cyanotic. Pupils are reactive to light. No nystagmus. NECK: Supple. No JVD or carotid bruit. No thyromegaly. CHEST: Clear with decreased entry in the bases of both lung vela. CARDIOVASCULAR: 1st and 2nd heart sounds heard. No gallops, rubs. Rhythm is regular. ABDOMEN: Full, soft, nontender. No organomegaly. Bowel sounds are hypoactive. RECTAL: Deferred at this time. EXTREMITIES: Good distal pulse volumes, regular, symmetrical. NEUROLOGICAL: Patient does not respond to sternal rub and other noxious stimuli. SKIN: Intact. No breakdown, lesions or erythema. Skin exam is grossly normal. ASSESSMENT: Toxic encephalopathy secondary to unknown substance ingestion. Her urine drug screen is positive for benzodiazepines, methadone and marijuana. Neither of these, except for Valium, are on her home medication list. The patient will be continued with mechanical ventilation until patient is fully arousable and coherent. Her vital signs are stable. DVT prophylaxis will be purely mechanical, as patient has blood in ET tube. GI prophylaxis instituted. ABG, chest films to be done every day. I anticipate that within the next 24 to 48 hours we should, hopefully, get this patient off the ventilator, but when she comes off the ventilator, she will definitely need to be placed in the psychiatric facility as intent, she has a very strong intent of killing or harming herself. Also, by her note, she also makes it very obvious she has some degree of psychosis. The patient's leukocytosis could suggest that she may have aspirated and we will cover her for this. Breathing treatments will also be instituted. CRITICAL CARE TIME: For this patient was 40 minutes. cc: MD Sondra Zhong MD
[2019-04-26 02:38] LABS: ALLEN TEST YES; BE 2.3 mmoll (-3.0-3.0); BLOOD TYPE ARTERIAL; HCO3-(ACT) 26.4 mmoll (20.0-26.0); METHB 0.7 % (0.0-1.5); O2(CT) 17.6 mL/dL (15.0-23.0); PCO2(98.6) 39 mmHg (35-45); PO2(98.6) 51 mmHg (60-100); SAMPLE BLOOD; SAO2 92.2 % (95.0-100.0); SRATE 18 BPM; THB 14.5 g/dL (11.5-17.4); TVOL 550 mL; pH(98.6) 7.44 (7.35-7.45)
[2019-04-26 02:39] LABS: MODALITY VENTILATOR
[2019-04-26 02:41] LABS: O2HB 86.6 % (95.0-99.0)
[2019-04-26] MEDS ORDERED: SODIUM CHLORIDE 0.9% INJ ONE (02:51)
[2019-04-26] MEDS: ZOSYN 3.375 GM in NS 50 ML IV SCH ×4 (03:38→20:07)
[2019-04-26] MEDS: NS 1,000 ML IV SCH ×4 (03:39→23:41)
[2019-04-26 04:36] LABS: ALLEN TEST YES; BE 1.8 mmoll (-3.0-3.0); BLOOD TYPE ARTERIAL; HCO3-(ACT) 26.2 mmoll (20.0-26.0); METHB 0.8 % (0.0-1.5); MODALITY VENTILATOR; O2(CT) 20.4 mL/dL (15.0-23.0); O2HB 94.7 % (95.0-99.0); PCO2(98.6) 31 mmHg (35-45); PO2(98.6) 182 mmHg (60-100); SAMPLE BLOOD; SAO2 99.1 % (95.0-100.0); SRATE 18 BPM; THB 15.1 g/dL (11.5-17.4); TVOL 550 mL
[2019-04-26] MEDS: PROTONIX IV SCH (05:39)
[2019-04-26 05:44] LABS: BASO# 0.01 X1000 (0.0-0.2); BASO% 0.1 % (0.0-0.8); EOS# 0.02 X1000 (0.0-0.7); EOS% 0.2 % (0.0-10.0); HEMATOCRIT 43.6 % (37.0-47.0); HEMOGLOBIN 14.1 g/dL (12.0-16.0); IMM GRAN# 0.02 X1000 (0.0-0.04); IMM GRAN% 0.2 % (0.0-0.5); LYMPH# 1.15 X1000 (1.2-3.4); LYMPH% 13.4 % (20.5-51.1); MCH 29.9 PG (27-31); MCHC 32.3 g/dL (33-37); MCV 92.4 FL (81-99); MONO# 0.44 X1000 (0.11-0.59); MONO% 5.1 % (1.7-9.3); MPV 9.7 FL (7.4-10.4); NEUT# 6.97 X1000 (1.4-6.5); PLT 331 X1000 (130-400); RBC 4.72 XMIL (4.2-5.4); RDW 14.3 % (11.5-14.5); WBC 8.61 X1000 (4.8-10.8)
[2019-04-26] MEDS ORDERED: LEVOPHED 8 MG in D5 1/2 NS 250 ML IV SCH (05:45)
[2019-04-26] MEDS: DUONEB (A & A) INH SCH ×4 (05:53→21:19)
[2019-04-26 06:24] LABS: URINE SOURCE CATH
[2019-04-26 06:26] LABS: BILIRUBIN URINE NEGATIVE (NEGATIVE); BLOOD URINE NEGATIVE (NEGATIVE); COLOR YELLOW; GLUCOSE URINE NEGATIVE (NEGATIVE); KETONE URINE NEGATIVE (NEGATIVE); LEUKOCYTES URINE NEGATIVE (NEGATIVE); NITRITE URINE NEGATIVE (NEGATIVE); PROTEIN URINE TRACE mg/dL (NEGATIVE); SP GRAVITY URINE 1.012; TURBIDITY URINE CLEAR (CLEAR); UROBILINOGEN URINE NORMAL (NORMAL)
[2019-04-26 06:27] LABS: UR EPITHELIAL CELLS <10 /HPF (<10); URINE BACTERIA NEGATIVE /HPF; URINE RBC <10 /HPF (<10); URINE WBC <10 /HPF (<10)
[2019-04-26 06:28] LABS: AGAP 16; ALB/GLOB RATIO 1.4; ALBUMIN 3.3 g/dL (3.5-5.0); ALKALINE PHOSPHATASE 67 U/L (32-104); BUN 20 mg/dL (8-22); CALCIUM 9.1 mg/dL (8.8-10.2); CHLORIDE 102 mmol/L (98-107); COSMO 284; CREATININE 0.9 mg/dL (0.5-0.9); ESTIMATED GFR > 60; GLUCOSE 130 mg/dL (70-104); GOT 20 U/L (10-30); GPT 12 U/L (10-36); POTASSIUM 4.1 mmol/L (3.5-5.1); SODIUM 140 mmol/L (136-145); TCO2 22 mmol/L (25-35); TOTAL BILIRUBIN 0.52 mg/dL (0.20-1.00); TOTAL PROTEIN 5.6 g/dL (6.3-8.3)
--- NOTE | 2019-04-26 08:20 | Diag Imaging Result Doc PS360 ---
EXAM: CHEST-1 VIEW INDICATION: confirm NGT placement TECHNIQUE: One view COMPARISON: 04/26/2019 FINDINGS: The ET tube is in stable position. There is a newly placed NG tube. The tip projects several centimeters below the diaphragm and is assumed to be in the lumen of the stomach in the expected position. The lungs are overexposed due to focus on the NG tube. However, they appear to be approximately stable. IMPRESSION: Interval placement of NG tube as described. Electronically signed by Mack Tafoya 04/26/2019 8:18 AM
--- NOTE | 2019-04-26 08:48 | Diag Imaging Result Doc PS360 ---
EXAM: CHEST-1 VIEW INDICATION: Check tube placement. TECHNIQUE: One view COMPARISON: None. FINDINGS: There is a newly placed ET tube. The tip projects over the trachea and above the paolo at about the T4-5 level. There is vague groundglass opacity in the right upper lung zone suggesting possible mild infiltrate. There are calcified granulomata at the left lung base. There is no discrete pleural fluid collection or pneumothorax. The cardiomediastinal silhouette and central vasculature are grossly unremarkable. IMPRESSION: 1.Newly placed ET tube identified in the expected position. 2.A opacity in the right upper lung zone suggesting possible developing infiltrate. Electronically signed by Mack Tafoya 04/26/2019 8:46 AM
[2019-04-26] MEDS: DIPRIVAN 1% 1,000 MG/100 ML BOTTLE IV SCH (20:07)
[2019-04-27] MEDS: DUONEB (A & A) INH SCH ×4 (03:00→21:27)
[2019-04-27] MEDS: ZOSYN 3.375 GM in NS 50 ML IV SCH ×4 (04:32→20:26)
[2019-04-27] MEDS: PROTONIX IV SCH ×2 (04:32→18:32)
[2019-04-27 05:16] LABS: ALLEN TEST YES; BE 1.5 mmoll (-3.0-3.0); BLOOD TYPE ARTERIAL; HCO3-(ACT) 25.9 mmoll (20.0-26.0); METHB 0.6 % (0.0-1.5); O2(CT) 27.7 mL/dL (15.0-23.0); O2HB 93.2 % (95.0-99.0); PCO2(98.6) 36 mmHg (35-45); PO2(98.6) 69 mmHg (60-100); SAMPLE BLOOD; SAO2 94.9 % (95.0-100.0); SRATE 18 BPM; THB 21.2 g/dL (11.5-17.4); TVOL 550 mL; pH(98.6) 7.45 (7.35-7.45)
[2019-04-27 05:20] LABS: MODALITY VENTILATOR
[2019-04-27] MEDS: DIPRIVAN 1% 1,000 MG/100 ML BOTTLE IV SCH ×3 (06:00→20:26)
[2019-04-27] MEDS: NS 1,000 ML IV SCH ×3 (06:00→20:27)
[2019-04-27 06:35] LABS: BASO# 0.02 X1000 (0.0-0.2); BASO% 0.1 % (0.0-0.8); EOS# 0.01 X1000 (0.0-0.7); HEMATOCRIT 42.8 % (37.0-47.0); HEMOGLOBIN 14.2 g/dL (12.0-16.0); IMM GRAN# 0.06 X1000 (0.0-0.04); IMM GRAN% 0.3 % (0.0-0.5); LYMPH% 7.6 % (20.5-51.1); MCH 30.1 PG (27-31); MCHC 33.2 g/dL (33-37); MCV 90.9 FL (81-99); MONO% 5.8 % (1.7-9.3); MPV 10.2 FL (7.4-10.4); NEUT% 86.2 % (42.2-75.2); PLT 325 X1000 (130-400); RBC 4.71 XMIL (4.2-5.4); RDW 14.8 % (11.5-14.5); WBC 22.29 X1000 (4.8-10.8)
[2019-04-27 06:50] LABS: ALB/GLOB RATIO 1.1; ALBUMIN 2.9 g/dL (3.5-5.0); CALCIUM 8.4 mg/dL (8.8-10.2); POTASSIUM 3.7 mmol/L (3.5-5.1); TOTAL BILIRUBIN 0.26 mg/dL (0.20-1.00); TOTAL PROTEIN 5.5 g/dL (6.3-8.3)
[2019-04-27 07:20] LABS: LYMPHS 4 % (21-51); MONO 4 % (1-9); SEGS 92 % (42-75)
--- NOTE | 2019-04-27 07:56 | Diag Imaging Result Doc PS360 ---
EXAM: CHEST-1 VIEW HISTORY: ventilator patient TECHNIQUE: Single view COMPARISON: 04/26/2019 FINDINGS: No change in the endotracheal tube or nasogastric tube. No cardiomegaly. There are infiltrates or atelectasis in the right base. These are slightly more prominent. However the markings in the right upper lobe are less pronounced. No pulmonary edema. IMPRESSION: Mixed areas of improvement and worsening. Electronically signed by Delvis Green 04/27/2019 7:54 AM
--- NOTE | 2019-04-27 17:50 | PROGRESS NOTE ---
DATE: 04/27/2019 INTERVAL HISTORY: Patient remains intubated and sedated. Oxygenation has been adequate. She is afebrile. Blood pressure remains marginal on Levophed. REVIEW OF SYSTEMS: Unable to obtain secondary to patient's mental status. LABS: WBC 22.2, hemoglobin 14.2, hematocrit 42.8, platelets 325,000. ABG with pH 7.45, PCO2 36, PO2 69 on ventilator. Sodium 146, potassium 3.7, bicarb 23, BUN 15, creatinine 1.0. IMAGING: Chest x-ray with possible improvement in the right upper lobe infiltrates but a little worse in the right lower. VITAL SIGNS: T-max 99.7 degrees, pulse 80, respirations 18, blood pressure 87/61, O2 saturation 96% on 40% FiO2 on ventilator. PHYSICAL EXAMINATION: General: No acute distress, intubated, and sedated. HEENT: Normocephalic, atraumatic. ET tube in place. Cardiovascular: Regular rate and rhythm. No murmurs noted. Pulmonary: Coarse breath sounds throughout with scattered rhonchi. Slightly decreased in both bases. Abdomen: Soft, nontender, nondistended. Bowel sounds positive. Extremities: Peripheral pulses intact. No clubbing or cyanosis. Neurologic: Exam limited by sedation. Minimal response to noxious stimuli only. Psychiatric: Sedated. ASSESSMENT AND PLAN: 1. Likely overdose with toxic encephalopathy. The patient came in unresponsive and obtunded after writing a note saying she wanted to get rid of the voices and bidding her family goodbye. UDS positive for benzodiazepines, methadone, and THC. Patient also noted to have scripts for duloxetine, Remeron, olanzapine, and trazodone at home. Not entirely certain what she took, but she came in hypoxic and unresponsive and hypotensive with likely aspiration pneumonia. We will treat medical conditions as below and wait for her to wake up. We will need [place] evaluation once she is extubated and conscious. 2. Likely septic shock, aspiration pneumonia, acute hypoxic respiratory failure. Likely secondary to a suicide attempt/overdose as above. Patient on antibiotics with Zosyn. Adding Levaquin to cover atypical pathogens. Holding home sedating medications and will try to minimize how much sedation we have to use. We will continue Levophed as needed for her hypotension. Cultures pending. Monitor closely. 3. Hypernatremia, mild. Will monitor for now but if it worsens tomorrow, may have to change fluids to half-normal saline. 4. Elevated creatinine. No baseline for comparison. Mildly elevated creatinine at 1.3 on admission, improved to 1.0 with fluids and antibiotics. Continue to monitor. 5. Hyperglycemia. Has been as high as 170, although not that high recently. Likely stress induced as there is no history of diabetes. Most recent glucose was 90, but checking A1c anyway to make sure she is not diabetic. 6. The patient is critically ill. Intubated and on pressors. Approximately 50 minutes spent immediately available to the patient examining patient, reviewing labs and imaging, and making medical decisions.
[2019-04-27] MEDS: LEVAQUIN 750 MG/D5W 750 MG/150 ML IVPB IV SCH (18:32)
[2019-04-28] MEDS: DUONEB (A & A) INH SCH ×4 (03:15→21:01)
[2019-04-28] MEDS: NS 1,000 ML IV SCH ×2 (03:18→08:15)
[2019-04-28] MEDS: ZOSYN 3.375 GM in NS 50 ML IV SCH ×4 (03:18→20:02)
[2019-04-28] MEDS: DIPRIVAN 1% 1,000 MG/100 ML BOTTLE IV SCH ×4 (04:17→23:24)
[2019-04-28 04:42] LABS: BASO# 0.04 X1000 (0.0-0.2); BASO% 0.3 % (0.0-0.8); EOS# 0.09 X1000 (0.0-0.7); EOS% 0.7 % (0.0-10.0); HEMATOCRIT 38.8 % (37.0-47.0); HEMOGLOBIN 12.7 g/dL (12.0-16.0); IMM GRAN# 0.05 X1000 (0.0-0.04); IMM GRAN% 0.4 % (0.0-0.5); LYMPH# 1.48 X1000 (1.2-3.4); MCH 30.6 PG (27-31); MCHC 32.7 g/dL (33-37); MCV 93.5 FL (81-99); MONO# 1.06 X1000 (0.11-0.59); MONO% 8.6 % (1.7-9.3); MPV 9.7 FL (7.4-10.4); NEUT# 9.65 X1000 (1.4-6.5); PLT 278 X1000 (130-400); RBC 4.15 XMIL (4.2-5.4); RDW 14.9 % (11.5-14.5); WBC 12.37 X1000 (4.8-10.8)
[2019-04-28 04:56] LABS: HEMOGLOBIN A1C 5.3 % (4.8-6.0)
[2019-04-28 05:02] LABS: ALLEN TEST YES; BLOOD TYPE ARTERIAL; HCO3-(ACT) 22.5 mmoll (20.0-26.0); METHB 0.8 % (0.0-1.5); O2(CT) 23.5 mL/dL (15.0-23.0); O2HB 96.1 % (95.0-99.0); PCO2(98.6) 35 mmHg (35-45); PO2(98.6) 94 mmHg (60-100); SAMPLE BLOOD; SAO2 98.1 % (95.0-100.0); SRATE 18 BPM; THB 17.4 g/dL (11.5-17.4); TVOL 550 mL; pH(98.6) 7.39 (7.35-7.45)
[2019-04-28 05:02] LABS: AGAP 11; BUN 17 mg/dL (8-22); CALCIUM 7.9 mg/dL (8.8-10.2); CHLORIDE 115 mmol/L (98-107); COSMO 292; CREATININE 0.9 mg/dL (0.5-0.9); ESTIMATED GFR > 60; GLUCOSE 88 mg/dL (70-104); POTASSIUM 3.5 mmol/L (3.5-5.1); SODIUM 146 mmol/L (136-145); TCO2 20 mmol/L (25-35)
[2019-04-28 05:03] LABS: MODALITY VENTILATOR
[2019-04-28] MEDS: PROTONIX IV SCH ×2 (05:11→17:23)
--- NOTE | 2019-04-28 07:01 | Diag Imaging Result Doc PS360 ---
EXAM: CHEST-1 VIEW 04/28/2019 HISTORY: ventilator TECHNIQUE: AP portable at 0449 COMMENT: There is an endotracheal tube with its tip approximately 2 cm above the paolo and an NG tube which passes below the diaphragm into the stomach. Compared to the previous study of 04/27/2019 the hazy opacity over the bases particularly in the right lower lobe has improved. IMPRESSION: Improved pulmonary edema and/or pneumonia. Electronically signed by Rodriguez Blankenship 04/28/2019 6:59 AM
[2019-04-28] MEDS ORDERED: LASIX IV SCH (11:15)
--- NOTE | 2019-04-28 11:47 | PROGRESS NOTE ---
DATE: 04/28/2019 SUBJECTIVE: Patient has no major complaints. OBJECTIVE: Vital Signs: Blood pressure 129/87, heart rate of 77, respiratory rate of 18, temperature 97.2 degrees, oxygen saturation 97% on 30%. Cardiovascular: Regular rate and rhythm. Pulmonary: Bilateral breath sounds clear to auscultation. Gastrointestinal: Soft, nontender, nondistended. Bowel sounds are positive. LABORATORY: Count is 12, hemoglobin and hematocrit of 12 and 38, platelets of 278,000. A pH of 7.39, pCO2 of 35, PaO2 of 94 on 40%. Sodium is 146 with a bicarbonate of 20. PROBLEM LIST: 1. Acute on chronic respiratory failure due to overdose. Working on weaning her off the ventilator, possibly take her off the ventilator today. Dr. Lewis is following. 2. Toxic encephalopathy. She is still somewhat confused. She overdosed on benzodiazepines, methadone, and she has THC in her system. 3. Hypernatremia. I have changed her fluids to D-5 half. We have also initiated some Lasix because she does appear to be third-spacing, somewhat volume overloaded. 4. Hyperglycemia is stable currently. She is not on any medication. Her A1c is normal. We will continue to monitor. 5. Shock. I think her blood pressure has stabilized. I think she is off her Levophed. We will probably stop that. DISPOSITION: Pending her clinical status. We will continue to follow closely. cc: Christian Ricardo MD
[2019-04-28 11:57] LABS: ALLEN TEST YES; BE -5.3 mmoll (-3.0-3.0); BLOOD TYPE ARTERIAL; HCO3-(ACT) 20.7 mmoll (20.0-26.0); METHB 0.9 % (0.0-1.5); O2(CT) 17.6 mL/dL (15.0-23.0); O2HB 94.1 % (95.0-99.0); PCO2(98.6) 44 mmHg (35-45); PO2(98.6) 76 mmHg (60-100); SAMPLE BLOOD; SAO2 96.5 % (95.0-100.0); THB 13.3 g/dL (11.5-17.4); pH(98.6) 7.29 (7.35-7.45)
[2019-04-28 11:58] LABS: MODALITY VENTILATOR
[2019-04-28] MEDS: LASIX IV SCH ×2 (12:12→23:24)
[2019-04-28] MEDS: D5 1/2 NS 1,000 ML IV SCH ×2 (12:13→23:23)
[2019-04-28 13:24] LABS: ALLEN TEST YES; BE -4.2 mmoll (-3.0-3.0); BLOOD TYPE ARTERIAL; HCO3-(ACT) 21.6 mmoll (20.0-26.0); METHB 0.6 % (0.0-1.5); MODALITY VENTILATOR; O2(CT) 20.2 mL/dL (15.0-23.0); O2HB 94.9 % (95.0-99.0); PCO2(98.6) 49 mmHg (35-45); PO2(98.6) 83 mmHg (60-100); SAMPLE BLOOD; SAO2 97.3 % (95.0-100.0); THB 15.1 g/dL (11.5-17.4); pH(98.6) 7.28 (7.35-7.45)
[2019-04-28] MEDS: SODIUM CHLORIDE 0.9% INJ SCH (17:24)
[2019-04-28] MEDS: LEVAQUIN 750 MG/D5W 750 MG/150 ML IVPB IV SCH (17:24)
--- NOTE | 2019-04-28 18:46 | PULMONOLOGY CONSULTATION ---
DATE: 04/28/2019 REQUESTING CLINICIAN: Dr. Simon Ricardo. REASON FOR CONSULTATION: Respiratory failure. HISTORY OF PRESENT ILLNESS: Ms Rebecca Lewis is a 68-year-old white female who has never been to this hospital. The patient was brought by EMS on the evening of 04/25/2019 with presumptive drug overdose. The patient had a bottle of benzodiazepines and was found unresponsive with some type of note at the bedside. The patient was hypotensive and hypothermic with a body temperature of 89 to 90 degrees on presentation. The patient was intubated due to unresponsiveness. She has had some bloody secretions noted with suctioning of her endotracheal tube. She has had coffee-ground material from her gastric aspirate. PAST MEDICAL HISTORY: Anxiety/depressive disorder/bipolar disorder suspected. The patient's medications include diazepam, duloxetine, mirtazapine, olanzapine and trazodone. Remaining medic medical history unknown. I have not seen any family or caregivers at the bedside. Review of systems, family history, social history, and additional past medical history cannot be performed. PHYSICAL EXAMINATION: General: Reveals a well-developed, well-nourished female who appears her stated age. Her propofol was discontinued upon my arrival to the bedside. She will open her eyes and will raise up but will not follow commands. OBJECTIVE: Vital Signs: Maximum temperature in the last 24 hours is 98.9 degrees, blood pressure 150/93, heart rate 89, respiratory rate 20, oxygen saturation 96%. HEENT: Pupils are equal and reactive. Oropharynx reveals slight enlargement of the tongue. Neck: Supple. Chest: Reveals decreased breath sounds bilaterally with scattered rhonchi. Cardiac: S1-S2. Abdomen: Soft. Extremities: Reveal increased edema of the hands and feet. LABORATORIES: Chest x-ray reveals endotracheal tube in good position. There are infiltrates predominantly in the right lower lobe with partial improvement over the last 24 hours. White blood count 12.37, hemoglobin 12.7, platelet count 278,000. Arterial blood gas #1 pH 7.39, pCO2 of 35, PO2 of 94. Arterial blood gas following spontaneous breathing trial pH 7.29, pCO2 of 44, pO2 of 76. Second arterial blood gas revealed a pH 7.28, pCO2 of 49, PO2 of 83 after a 2 hour weaning trial. White blood count 12.37, hemoglobin 12.7, platelet count 278,000. Sodium 146, potassium 3.5, chloride 115, bicarbonate 20, anion gap 11, BUN 17, creatinine 0.9. IMPRESSION: A 68-year-old with 1. Acute hypoxemic respiratory failure. 2. Hypothermia on presentation. 3. Drug overdose. 4. Pneumonia. 5. Oropharyngeal bleeding noted earlier in this hospital stay, she may have an oropharyngeal injury but is not actively bleeding now. 6. Coffee-ground material from the nasogastric tube, likely related to stress gastritis. DISCUSSION: A 68-year-old with problems outlined above. The patient has total body fluid overload. She is arousable and is attempting to sit up but she has not successfully passed a spontaneous breathing trial. It is anticipated with 1 additional day of ventilation to allow her to further metabolize her benzodiazepines along with adequate diuresis, she should easily be extubated tomorrow. PLAN: 1. Continue ventilatory support with anticipation of extubation tomorrow. Will utilize propofol for sedation given the rapid offset today. 2. Diuretics as outlined by Dr. Ricardo. 3. Change IV fluids. She is developing a hyperchloremic metabolic acidosis. 4. Continue antibiotics for possible aspiration pneumonia although radiographically she is rapidly improving. 5. The patient will require a psychiatry evaluation before discharge from the hospital. TIME SPENT: In critical care management 1 hour. cc: Oscar Lewis MD
[2019-04-29] MEDS: ZOSYN 3.375 GM in NS 50 ML IV SCH ×4 (03:06→20:12)
[2019-04-29] MEDS: DUONEB (A & A) INH SCH ×4 (03:09→21:48)
[2019-04-29] MEDS: DIPRIVAN 1% 1,000 MG/100 ML BOTTLE IV SCH (04:09)
[2019-04-29] MEDS: PROTONIX IV SCH ×2 (04:32→17:06)
[2019-04-29] MEDS: SODIUM CHLORIDE 0.9% INJ SCH ×2 (04:32→17:07)
[2019-04-29 05:13] LABS: ALLEN TEST YES; BE 2.1 mmoll (-3.0-3.0); BLOOD TYPE ARTERIAL; HCO3-(ACT) 26.5 mmoll (20.0-26.0); O2(CT) 17.8 mL/dL (15.0-23.0); PCO2(98.6) 34 mmHg (35-45); PO2(98.6) 94 mmHg (60-100); SAMPLE BLOOD; SAO2 98.3 % (95.0-100.0); SRATE 15 BPM; THB 13.1 g/dL (11.5-17.4); TVOL 500 mL; pH(98.6) 7.48 (7.35-7.45)
[2019-04-29 05:14] LABS: MODALITY VENTILATOR
[2019-04-29 06:42] LABS: BASO# 0.03 X1000 (0.0-0.2); BASO% 0.3 % (0.0-0.8); EOS# 0.28 X1000 (0.0-0.7); HEMATOCRIT 39.5 % (37.0-47.0); HEMOGLOBIN 12.9 g/dL (12.0-16.0); LYMPH# 1.36 X1000 (1.2-3.4); LYMPH% 14.4 % (20.5-51.1); MCH 30.4 PG (27-31); MCHC 32.7 g/dL (33-37); MCV 93.2 FL (81-99); MONO# 0.83 X1000 (0.11-0.59); MONO% 8.8 % (1.7-9.3); NEUT# 6.97 X1000 (1.4-6.5); NEUT% 73.5 % (42.2-75.2); PLT 305 X1000 (130-400); RBC 4.24 XMIL (4.2-5.4); RDW 14.9 % (11.5-14.5); WBC 9.47 X1000 (4.8-10.8)
[2019-04-29 07:21] LABS: CALCIUM 8.3 mg/dL (8.8-10.2); POTASSIUM 2.8 mmol/L (3.5-5.1)
--- NOTE | 2019-04-29 07:26 | Diag Imaging Result Doc PS360 ---
CHEST-PORTABLE - 04/29/2019 INDICATION: Ventilator Patient COMPARISON: 04/28/2019 FINDINGS: Support tubes are in stable position. There has been improvement in the bilateral lower lobe atelectasis or infiltrate. No significant consolidation at this time. Heart size remains normal. No large pleural effusion. IMPRESSION: No acute disease or complication. Electronically signed by Morgan Skinner 04/29/2019 7:24 AM
[2019-04-29] MEDS: D5 1/2 NS 1,000 ML IV SCH (08:11)
[2019-04-29 10:39] LABS: ALLEN TEST YES; BE 1.7 mmoll (-3.0-3.0); BLOOD TYPE ARTERIAL; HCO3-(ACT) 26.1 mmoll (20.0-26.0); METHB 1.2 % (0.0-1.5); MODALITY VENTILATOR; O2(CT) 17.7 mL/dL (15.0-23.0); O2HB 92.4 % (95.0-99.0); PCO2(98.6) 38 mmHg (35-45); PO2(98.6) 64 mmHg (60-100); SAMPLE BLOOD; THB 13.6 g/dL (11.5-17.4); pH(98.6) 7.44 (7.35-7.45)
--- NOTE | 2019-04-29 11:54 | PROGRESS NOTE ---
DATE: 04/29/2019 SUBJECTIVE: The patient has no major complaints. OBJECTIVE: Vital Signs: Blood pressure 124/77, heart rate 69, respiratory rate of 20, temp was 98.1 degrees. Cardiovascular: Regular rate and rhythm. Pulmonary: Bilateral breath sounds. No wheezes, rales. Gastrointestinal: Soft, nontender, nondistended. Bowel sounds are positive. LABORATORY DATA: White count is 9, hemoglobin and hematocrit 12 and 39, platelets 305,000. PH 7.44, pCO2 of 38, PaO2 of 64. Potassium is 2.8. PROBLEM LIST: 1. Acute on chronic respiratory failure due to overdose, but possibly pneumonia. She is getting another spontaneous breathing trial today, but she is doing pretty well. I think we will probably be able to extubate her at the discretion. 2. Toxic encephalopathy in the setting of overdose. We will continue to monitor. She had multiple medications in her system. 3. Hypernatremia. That has improved. I am going to leave her on the D5 for right now. She is getting potassium. Will continue potassium supplementation as well, and follow. 4. Drug overdose. Will get Psychiatric evaluation once she is stabilized. cc: Christian Ricardo MD
[2019-04-29] MEDS: POTASSIUM CHLORIDE 40 MEQ in D5 1/2 NS 1,000 ML IV SCH ×2 (13:35→21:54)
[2019-04-29] MEDS: LEVAQUIN 750 MG/D5W 750 MG/150 ML IVPB IV SCH (17:06)
[2019-04-29] MEDS ORDERED: APRESOLINE IV PRN (18:51)
[2019-04-29] MEDS ORDERED: APRESOLINE IV ONE (18:51)
[2019-04-29] MEDS: TYLENOL PO PRN (20:42)
[2019-04-29] MEDS ORDERED: LASIX IV ONE (21:15)
--- NOTE | 2019-04-30 00:25 | PULMONOLOGY PROGRESS NOTE ---
DATE: 04/29/2019 SUBJECTIVE: The patient was placed on a spontaneous breathing trial this morning. She passed and has subsequently been extubated. She is awake and conversant. OBJECTIVE: Vital Signs: The patient has been afebrile for the last 24 hours. Blood pressure 136/84, heart rate 75, respiratory rate 25, oxygen saturation 95%. HEENT: Pupils are equal and reactive. Oropharynx appears clear. Abdomen: Soft with good bowel sounds. Extremities: Reveal 1+ peripheral edema. LABORATORIES: White blood count 9.47, hemoglobin 12.9, platelet count 305,000. Sodium 143, potassium 2.8, chloride 109, bicarbonate 23, BUN 12, creatinine 1.0. Arterial blood gas following spontaneous breathing trial, pH 7.44, pCO2 of 38, PO2 of 64. Chest x-ray reveals clearing of the basilar infiltrates. Microbiology reveals sparse normal gab. IMPRESSION: A 68-year-old with 1. Acute hypoxemic respiratory failure. 2. Drug overdose. 3. Resolving pneumonia. 4. Stress gastritis. PLAN: 1. Extubation (complete). 2. Ice chips today and advance diet tomorrow as tolerated. 3. Psychiatric evaluation anticipated. TIME SPENT: in critical care management, 35 minutes. cc: Oscar Lewis MD
[2019-04-30] MEDS: ZOSYN 3.375 GM in NS 50 ML IV SCH ×4 (03:38→20:32)
[2019-04-30] MEDS: DUONEB (A & A) INH SCH ×4 (03:50→21:17)
[2019-04-30] MEDS: PROTONIX IV SCH (04:57)
[2019-04-30] MEDS: SODIUM CHLORIDE 0.9% INJ SCH (04:57)
[2019-04-30] MEDS: LOVENOX SUBQ SCH (05:00)
[2019-04-30 06:52] LABS: MAGNESIUM 1.4 mg/dL (1.5-2.7); PHOSPHORUS 2.4 mg/dL (2.7-4.5)
[2019-04-30 07:23] LABS: CALCIUM 9.4 mg/dL (8.8-10.2); POTASSIUM 3.1 mmol/L (3.5-5.1)
[2019-04-30] MEDS: POTASSIUM CHLORIDE 40 MEQ in D5 1/2 NS 1,000 ML IV SCH ×3 (08:35→23:20)
[2019-04-30 09:53] LABS: BASO# 0.03 X1000 (0.0-0.2); BASO% 0.3 % (0.0-0.8); EOS# 0.08 X1000 (0.0-0.7); EOS% 0.7 % (0.0-10.0); HEMATOCRIT 47.5 % (37.0-47.0); HEMOGLOBIN 15.6 g/dL (12.0-16.0); IMM GRAN# 0.02 X1000 (0.0-0.04); IMM GRAN% 0.2 % (0.0-0.5); LYMPH# 1.09 X1000 (1.2-3.4); LYMPH% 9.4 % (20.5-51.1); MCH 30.1 PG (27-31); MCHC 32.8 g/dL (33-37); MCV 91.7 FL (81-99); MONO# 0.79 X1000 (0.11-0.59); MONO% 6.8 % (1.7-9.3); MPV 9.3 FL (7.4-10.4); NEUT# 9.56 X1000 (1.4-6.5); NEUT% 82.6 % (42.2-75.2); PLT 384 X1000 (130-400); RBC 5.18 XMIL (4.2-5.4); RDW 14.7 % (11.5-14.5); WBC 11.57 X1000 (4.8-10.8)
[2019-04-30] MEDS: ZOFRAN IV PRN ×2 (11:46→20:47)
[2019-04-30] MEDS: KLOR-CON PO ONE ×2 (12:23→12:50)
[2019-04-30] MEDS: PRILOSEC PO ONE ×2 (12:23→12:50)
[2019-04-30] MEDS ORDERED: MAGNESIUM SULFATE 2 GM/S.W.I. 2 GM/50 ML IVPB IV ONE (13:00)
--- NOTE | 2019-04-30 13:38 | PROGRESS NOTE ---
DATE: 04/30/2019 SUBJECTIVE: Patient has no major complaints. OBJECTIVE: Blood pressure 139/92, heart rate 86, respiratory 19, and temperature 98.4 degrees. I believe she is afebrile 99.9 was her max temperature. Cardiovascular: Regular rate and rhythm. Pulmonary: Diminished breath sounds throughout. GI: Soft, nontender, nondistended. Bowel sounds are positive. LABORATORY DATA: Her white count is 11, hemoglobin and hematocrit 15 and 47, and platelets 384,000. Sodium is 140, potassium 3.1, creatinine of 1. Glucose of 111, Mag of 1.4, and phosphorus of 2.4. PROBLEM LIST: 1. Acute respiratory failure due to overdose and possible aspiration pneumonia. She is off the vent. She still has a decent O2 requirement so we will work on trying to wean that. I am hopeful with some pulmonary toilet, getting out of bed, and incentive spirometry maybe we will be able bring that down some. 2. Toxic encephalopathy. She is certainly less confused but still disoriented. She did have a drug overdose. She had respiratory failure on the ventilator so there may be some issues there. She also has underlying psychiatric issues, which I am not sure what will need to be addressed. She is still confused, but she did admit to depression. She did admit to suicidal ideation. She will need psychiatric evaluation when she is ready to be discharged. 3. Hypernatremia, hypokalemia, and hypomagnesemia. We will continue to supplement and follow. 4. Drug overdose with depression. We will get psychiatric evaluation. I am going to try to start at least her home medications when they are available. cc: Christian Ricardo MD
[2019-04-30] MEDS: LEVAQUIN 750 MG/D5W 750 MG/150 ML IVPB IV SCH (17:26)
[2019-05-01] MEDS: DUONEB (A & A) INH SCH ×4 (03:22→22:17)
[2019-05-01] MEDS: ZOSYN 3.375 GM in NS 50 ML IV SCH ×2 (04:28→09:53)
[2019-05-01] MEDS: PRILOSEC PO SCH (06:25)
[2019-05-01] MEDS: LOVENOX SUBQ SCH (06:26)
--- NOTE | 2019-05-01 06:38 | PULMONOLOGY PROGRESS NOTE ---
DATE: 04/30/2019 SUBJECTIVE: The patient is awake and alert. She appears to be disoriented. She will follow simple commands. OBJECTIVE: Vital Signs: Maximum temperature in the last 24 hours is 99.9 degrees. Blood pressure 142/92 heart rate 87, respiratory rate 24, and oxygen saturation 93% HEENT: Pupils are equal and reactive. Oropharynx appears clear. Neck: Supple. Lungs: Chest reveals good air entry bilaterally without wheezing or rhonchi. Cardiac: S1-S2. GI: Abdomen is soft. Extremities: Reveal decrease edema. LABORATORIES: White blood count 11.6, hemoglobin 15.6, and platelet count 384,000. IMPRESSION: A 68-year-old with: 1. Acute hypoxemic respiratory failure. She is doing well off mechanical ventilation, and is on nasal cannula. 2. Drug overdose. 3. Resolving pneumonia. 4. Stress gastritis. 5. Altered mental status/delirium. PLAN: 1. Continue to wean oxygen as tolerated. 2. Advance diet as tolerated. 3. Discontinue [place] catheter. 4. Anticipate psychiatric evaluation. 5. Consider discontinuing Zosyn, and transitioning her to a single agent such as Levaquin. cc: Oscar Lewis MD
[2019-05-01 07:11] LABS: HEMATOCRIT 45.9 % (37.0-47.0); HEMOGLOBIN 15.6 g/dL (12.0-16.0); MCH 31.4 PG (27-31); MCV 92.4 FL (81-99); MPV 9.3 FL (7.4-10.4); RBC 4.97 XMIL (4.2-5.4); RDW 14.9 % (11.5-14.5); WBC 14.1 X1000 (4.8-10.8)
[2019-05-01 07:49] LABS: AGAP 12; BUN 17 mg/dL (8-22); CALCIUM 9.1 mg/dL (8.8-10.2); CHLORIDE 107 mmol/L (98-107); COSMO 282; CREATININE 0.9 mg/dL (0.5-0.9); ESTIMATED GFR > 60; GLUCOSE 111 mg/dL (70-104); MAGNESIUM 2.1 mg/dL (1.5-2.7); POTASSIUM 4.1 mmol/L (3.5-5.1); SODIUM 140 mmol/L (136-145); TCO2 21 mmol/L (25-35)
[2019-05-01] MEDS: POTASSIUM CHLORIDE 40 MEQ in D5 1/2 NS 1,000 ML IV SCH (09:53)
[2019-05-01] MEDS ORDERED: VALIUM PO PRN (10:42)
[2019-05-01] MEDS: COSOPT OPHTH SOLN BOTH EYES SCH (13:53)
[2019-05-01] MEDS ORDERED: LASIX IV ONE (13:53)
--- NOTE | 2019-05-01 14:47 | PROGRESS NOTE ---
DATE: 05/01/2019 SUBJECTIVE: The patient has no major complaints. She is still very weak. She needs assistance eating and with coordination. OBJECTIVE: Blood pressure 162/95, heart rate of 89, respiratory rate 17, temperature 98.1 degrees, 96% on 2 L. Cardiovascular: Regular rate and rhythm. Pulmonary: Bilateral breath sounds clear to auscultation. GI: Soft, nontender. Laboratory Data: White count is 14, hemoglobin and hematocrit 15 and 45, platelets 379,000. Basic was normal. PROBLEM LIST: 1. Acute respiratory failure due to aspiration pneumonia. She is improving. We are weaning her oxygen. She is down to 2 L. 2. Encephalopathy, myopathy. She is very weak, much more than I would expect for what has transpired, although she was on the ventilator. We will work on physical conditioning, physical therapy, occupational therapy, and follow. She may need neurology input. I will decide about that tomorrow, prior to the weekend. 3. Suicidal ideation, depression. We will continue to monitor. She will need a psychiatric evaluation before discharge but I do not think she is ready for discharge yet. 4. Fluid, electrolytes, and nutrition. Her electrolytes are improved so we will continue. 5. Disposition. Pending psychiatric clearance and then possible home. cc: Christian Ricardo MD
[2019-05-01] MEDS ORDERED: CALMOSEPTINE OINTMENT TOP PRN (15:40)
[2019-05-01] MEDS: LEVAQUIN 750 MG/D5W 750 MG/150 ML IVPB IV SCH (17:31)
[2019-05-01] MEDS: XALATAN 0.005% OPH SOLN BOTH EYES SCH (21:15)
[2019-05-01] MEDS: MIRALAX PO SCH ×2 (21:15→21:30)
[2019-05-01] MEDS: SEROQUEL PO SCH (21:15)
[2019-05-01] MEDS: REMERON PO SCH (21:15)
[2019-05-01] MEDS: CYMBALTA PO SCH (21:16)
[2019-05-01] MEDS: ZYPREXA PO SCH (21:16)
[2019-05-01] MEDS: PRAVACHOL PO SCH (21:16)
[2019-05-01] MEDS: LIORESAL PO SCH (21:16)
--- NOTE | 2019-05-02 00:55 | PULMONOLOGY PROGRESS NOTE ---
DATE: 05/01/2019 SUBJECTIVE: Patient is awake and alert. She will smile to her name, but she is not conversant. OBJECTIVE: Vital Signs: The patient has been afebrile for the last 24 hours. Blood pressure 153/84, heart rate 85, respiratory rate 22, oxygen saturation 97% on 2 L per nasal cannula. HEENT: Pupils are equal and reactive. Oropharynx appears clear. Neck: Supple. Chest: Reveals faint crackles in the lung bases. Cardiac: S1-S2. Abdomen: Soft. Extremities: Reveal decreasing edema. LABORATORIES: Sodium 140, potassium 4.1, chloride 107, bicarbonate 21, BUN 17, creatinine 0.9, glucose 111. IMPRESSION: A 68-year-old with: 1. Acute hypoxemic respiratory failure. 2. Drug overdose, intentional. 3. Pneumonia, now on single agent antibiotic. 4. Stress gastritis. 5. Delirium. PLAN: 1. Continue to wean oxygen as tolerated. 2. Diet as tolerated. 3. Anticipate the need for inpatient psychiatric evaluation. cc: Oscar Lewis MD
[2019-05-02] MEDS: COSOPT OPHTH SOLN BOTH EYES SCH ×4 (02:22→23:02)
[2019-05-02] MEDS: DUONEB (A & A) INH SCH ×2 (03:28→09:17)
[2019-05-02 06:05] LABS: BASO# 0.04 X1000 (0.0-0.2); BASO% 0.4 % (0.0-0.8); EOS# 0.08 X1000 (0.0-0.7); EOS% 0.7 % (0.0-10.0); HEMATOCRIT 49.7 % (37.0-47.0); HEMOGLOBIN 16.3 g/dL (12.0-16.0); IMM GRAN# 0.03 X1000 (0.0-0.04); IMM GRAN% 0.3 % (0.0-0.5); LYMPH# 1.89 X1000 (1.2-3.4); LYMPH% 16.7 % (20.5-51.1); MCH 29.7 PG (27-31); MCHC 32.8 g/dL (33-37); MCV 90.7 FL (81-99); MONO# 1.17 X1000 (0.11-0.59); MONO% 10.3 % (1.7-9.3); MPV 9.2 FL (7.4-10.4); NEUT# 8.11 X1000 (1.4-6.5); NEUT% 71.6 % (42.2-75.2); PLT 386 X1000 (130-400); RBC 5.48 XMIL (4.2-5.4); RDW 14.4 % (11.5-14.5); WBC 11.32 X1000 (4.8-10.8)
[2019-05-02] MEDS: PRILOSEC PO SCH (06:27)
[2019-05-02] MEDS: LOVENOX SUBQ SCH (06:27)
--- NOTE | 2019-05-02 06:30 | Diag Imaging Result Doc PS360 ---
EXAM: CHEST-PORTABLE HISTORY: abnormal exam TECHNIQUE: Single view COMPARISON: 04/29/2019 FINDINGS: The endotracheal and nasogastric tubes have been removed. The lungs are well expanded. The heart is not enlarged. The vessels are not distended. There are no infiltrates. No effusion identified. Left-sided granuloma. IMPRESSION: Negative exam. Electronically signed by Delvis Green 05/02/2019 6:27 AM
[2019-05-02 06:34] LABS: MAGNESIUM 1.6 mg/dL (1.5-2.7); PHOSPHORUS 2.2 mg/dL (2.7-4.5)
[2019-05-02 06:39] LABS: CALCIUM 9.9 mg/dL (8.8-10.2); POTASSIUM 3.4 mmol/L (3.5-5.1)
--- NOTE | 2019-05-02 07:29 | EKG Report ---
Test Performed on : 05/02/2019 07:21:44 AM Test Reason : rhythm change Blood Pressure : / mmHG Vent. Rate : 169 BPM Atrial Rate : 338 BPM P-R Int : 000 ms QRS Dur : 124 ms QT Int : 252 ms P-R-T Axes : 268 054 -78 degrees QTc Int : 422 ms Critical Test Result: High HR Atrial flutter. with 2:1 AV conduction. Nonspecific intraventricular conduction delay Marked ST abnormality, possible inferior subendocardial injury Abnormal ECG When compared with ECG of 15-APR-2019 07:12, Significant changes have occurred Confirmed by Harish TAVARES, Rickey Rhodes ([id number]) on 05/04/2019 10:25:37 PM
[2019-05-02] MEDS ORDERED: CARDIZEM IV ONE (08:57)
[2019-05-02] MEDS ORDERED: CARDIZEM 100 MG/NS 100 MG/100 ML IVPB IV SCH (09:00)
[2019-05-02] MEDS: LIORESAL PO SCH ×3 (09:38→21:31)
[2019-05-02] MEDS: CYMBALTA PO SCH ×3 (09:38→21:30)
[2019-05-02] MEDS: THERA M PLUS PO SCH ×2 (09:38→09:42)
[2019-05-02] MEDS: MIRALAX PO SCH ×2 (09:39→21:33)
[2019-05-02] MEDS ORDERED: NS 500 ML IV ONE (10:58)
[2019-05-02] MEDS ORDERED: MAGNESIUM SULFATE 2 GM/S.W.I. 2 GM/50 ML IVPB IV ONE (10:59)
[2019-05-02] MEDS ORDERED: LOPRESSOR IV PRN (11:01)
[2019-05-02] MEDS: LANOXIN IV SCH ×3 (11:18→23:21)
[2019-05-02] MEDS ORDERED: POTASSIUM PHOSPHATE 40 MEQ in NS 250 ML IV ONE (11:30)
--- NOTE | 2019-05-02 11:57 | EKG Report ---
Test Performed on : 05/02/2019 11:44:03 AM Test Reason : sr vs afib/flutter Blood Pressure : / mmHG Vent. Rate : 082 BPM Atrial Rate : 082 BPM P-R Int : 112 ms QRS Dur : 080 ms QT Int : 384 ms P-R-T Axes : -17 057 038 degrees QTc Int : 448 ms Normal sinus rhythm. Normal ECG When compared with ECG of 02-MAY-2019 07:21, (Unconfirmed) Sinus rhythm. has replaced Atrial flutter. Vent. rate has decreased BY 87 BPM QRS duration has decreased ST no longer depressed in Inferior leads ST no longer depressed in Anterolateral leads Nonspecific T wave abnormality has replaced inverted T waves in Inferior leads Nonspecific T wave abnormality no longer evident in Anterolateral leads Confirmed by Harish TAVARES, Rickey Rhodes ([id number]) on 05/04/2019 10:25:54 PM
[2019-05-02 12:30] LABS: FREE T4 1.42 ng/dL (0.93-1.70)
[2019-05-02 12:32] LABS: TSH 5.93 uIUmL (0.27-4.20)
[2019-05-02] MEDS: LOPRESSOR IV SCH ×2 (13:17→21:25)
--- NOTE | 2019-05-02 13:24 | CARDIOLOGY CONSULTATION ---
DATE: 05/02/2019 HISTORY: The patient went into atrial flutter with 2 to 1 block. Cardiology was consulted. The patient was started on a Cardizem drip, and was given digoxin IV. Ms. Toussaint is a 68-year-old lady whose history was obtained from the chart as history is not forthcoming. She is admitted with suicidal intent. The patient was admitted here via EMS. The patient was unresponsive and obtunded when she was admitted. On arrival, EMS noted there was lot of Ativan pills scattered all over the bed. The patient had written a note stating that she wanted to get rid of the voices in her head. She also told the family goodbye. She went into atrial flutter with rapid ventricular rate this morning, was given Cardizem and Lanoxin. She is back in sinus rhythm. REVIEW OF SYSTEMS: Could not be obtained from the patient. PAST MEDICAL HISTORY: She is admitted with intentional drug overdose. She had hypoxemic respiratory failure. Pneumonia. Gastritis and delirium during this hospitalization. ALLERGIES: She is allergic to sulfonamides and aspirin. HOME MEDICATIONS: List included Valium, duloxetine, Remeron, olanzapine, and trazodone. PHYSICAL EXAMINATION: Vital Signs: Blood pressure was 120/80. First and second heart sounds were heard. There was no S3 gallop. Respiratory: Equal breath sounds. There was no wheezing. Abdomen: Soft. Central nervous system: The patient was awake not answering questions appropriately. She was moving extremities. Detailed central nervous system examination not performed. ASSESSMENT AND PLAN: 1. Ms. Toussaint is a 68-year-old lady who is admitted with overdose with suicidal intent on her home medications. From a cardiac standpoint, she went into atrial flutter. She is currently in sinus rhythm. She cannot take p.o. medications orally. I would recommend the following. We will discontinue the IV Cardizem drip, and put her on scheduled Lopressor 5 mg 3 times a day in addition to Lanoxin 0.125 mg IV daily. Once she can take tablets, we will change her to p.o. medications. 2. Her recent echocardiogram revealed ejection fraction of 55%. No significant valvular abnormality. 3. We will replete her magnesium and potassium as well. cc: Calvin Elliott MD
[2019-05-02] MEDS: ATROVENT NEB INH SCH ×2 (16:51→23:27)
[2019-05-02] MEDS: XOPENEX NEB INH SCH ×2 (16:51→23:27)
[2019-05-02] MEDS: LEVAQUIN 750 MG/D5W 750 MG/150 ML IVPB IV SCH (17:32)
--- NOTE | 2019-05-02 18:17 | PROGRESS NOTE ---
DATE: 05/02/2019 SUBJECTIVE: Patient has no major complaints. OBJECTIVE: Vital Signs: Blood pressure is 103/76, heart rate 82, respiratory rate 24, temperature 98.2 degrees, 96% on 2 L. Cardiovascular: Irregularly irregular. Pulmonary: Bilateral breath sounds, clear to auscultation. Abdomen: Soft, nontender, nondistended. Bowel sounds are positive. LABORATORY DATA: White count 11, hemoglobin and hematocrit of 16 and 49, platelets 386,000. Potassium 3.4, BUN and creatinine have climbed to 24 and 1. TSH is normal. PROBLEM LIST: 1. Acute respiratory failure due to aspiration pneumonia. Seems to be improving but now she is having increasing O2 requirement but some of that I think is heart rate driven. 2. Atrial flutter with rapid ventricular response. She is on Cardizem. We have added digoxin. I have consulted Cardiology. She will need an echo when her heart rate is under better control or at least I think she will need an echocardiogram. In any case she was pretty much tachycardic all morning, but after the digoxin she spontaneously converted. This is likely reactive. 3. Depression, suicidality, encephalopathy. We will need to get her re-evaluated when she stabilizes. cc: Christian Ricardo MD
[2019-05-02] MEDS: REMERON PO SCH (21:28)
[2019-05-02] MEDS: PRAVACHOL PO SCH (21:29)
[2019-05-02] MEDS: ZYPREXA PO SCH (21:30)
[2019-05-02] MEDS: SEROQUEL PO SCH (21:31)
[2019-05-02] MEDS: XALATAN 0.005% OPH SOLN BOTH EYES SCH (21:42)
--- NOTE | 2019-05-03 00:05 | PULMONOLOGY PROGRESS NOTE ---
DATE: 05/02/2019 SUBJECTIVE: The patient is awake and alert. She will smile to her name being called. She will nod yes and no although not in answer to a question. She does not engage in conversation. OBJECTIVE: Vital Signs: Blood pressure is 103/76 with heart rate of 82, respirations are 22, temperature is 98.2 degrees axillary with O2 saturations 96% on 3 L nasal cannula. Cardiovascular: Regular rate and rhythm. S1 and S2 appreciated. Pulmonary: Breath sounds are clear with no increased work of breathing noted. Chest rises and falls symmetric with respiration. Gastrointestinal: Abdomen is soft, nontender, nondistended with bowel sounds in all 4 quadrants. Neurologic: She is alert. LABORATORIES: 1. WBC is 11.3 with hemoglobin 16.3, hematocrit 49.7 and platelets of 386,000. Sodium 142, potassium 3.4, BUN 24, creatinine 1 with a glucose of 118. 2. Chest x-ray revealed a negative exam. Lungs are well expanded. Heart is not enlarged. Vessels are not distended. There are no infiltrates. No effusion. IMPRESSION: 1. Acute hypoxemic respiratory failure. 2. Drug overdose, intentional. 3. Pneumonia, on Levaquin. 4. Stress gastritis. 5. Delirium. PLAN: 1. We will continue to wean oxygen as tolerated with and continue care per medical team. 2. Plan was discussed with Dr. Lewis. Dictated by GUNJAN Chilel for Oscar Lewis MD cc: GUNJAN Chilel MD
[2019-05-03] MEDS: PRILOSEC PO SCH ×2 (05:51→06:13)
[2019-05-03] MEDS: LOPRESSOR IV SCH ×2 (05:51→12:35)
[2019-05-03 05:54] LABS: BASO# 0.09 X1000 (0.0-0.2); BASO% 0.7 % (0.0-0.8); EOS# 0.14 X1000 (0.0-0.7); EOS% 1.1 % (0.0-10.0); IMM GRAN# 0.05 X1000 (0.0-0.04); IMM GRAN% 0.4 % (0.0-0.5); LYMPH# 1.93 X1000 (1.2-3.4); MCH 29.9 PG (27-31); MCHC 32.6 g/dL (33-37); MCV 91.8 FL (81-99); MONO# 1.47 X1000 (0.11-0.59); MONO% 11.4 % (1.7-9.3); MPV 9.3 FL (7.4-10.4); NEUT# 9.18 X1000 (1.4-6.5); NEUT% 71.4 % (42.2-75.2); PLT 326 X1000 (130-400); RBC 5.01 XMIL (4.2-5.4); RDW 14.3 % (11.5-14.5); WBC 12.86 X1000 (4.8-10.8)
[2019-05-03] MEDS: LOVENOX SUBQ SCH (05:55)
[2019-05-03 06:34] LABS: CALCIUM 9.3 mg/dL (8.8-10.2); MAGNESIUM 1.9 mg/dL (1.5-2.7); POTASSIUM 3.8 mmol/L (3.5-5.1)
[2019-05-03] MEDS: LIORESAL PO SCH ×2 (08:32→22:02)
[2019-05-03] MEDS: THERA M PLUS PO SCH (08:32)
[2019-05-03] MEDS: CYMBALTA PO SCH ×2 (08:32→22:02)
[2019-05-03] MEDS: MIRALAX PO SCH ×2 (08:33→22:01)
--- NOTE | 2019-05-03 08:54 | EKG Report ---
Test Performed on : 05/03/2019 07:00:29 AM Test Reason : aflutter Blood Pressure : / mmHG Vent. Rate : 088 BPM Atrial Rate : 088 BPM P-R Int : 110 ms QRS Dur : 080 ms QT Int : 450 ms P-R-T Axes : -18 055 -10 degrees QTc Int : 544 ms Poor data quality, interpretation may be adversely affected Sinus rhythm. with short SD T wave abnormality, consider inferior ischemia Abnormal ECG When compared with ECG of 02-MAY-2019 11:44, (Unconfirmed) T wave inversion now evident in Inferior leads Nonspecific T wave abnormality now evident in Anterolateral leads QT has lengthened Confirmed by Harish TAVARES, Rickey Rhodes ([id number]) on 05/04/2019 10:26:12 PM
[2019-05-03] MEDS ORDERED: LANOXIN IV SCH (09:00)
[2019-05-03] MEDS: COSOPT OPHTH SOLN BOTH EYES SCH ×2 (10:24→22:42)
[2019-05-03] MEDS: ATROVENT NEB INH SCH ×3 (10:41→22:12)
[2019-05-03] MEDS: XOPENEX NEB INH SCH ×3 (10:41→22:12)
[2019-05-03] MEDS ORDERED: KLOR-CON PO ONE (14:03)
[2019-05-03] MEDS ORDERED: NICODERM PATCH TD PRN (14:05)
[2019-05-03] MEDS: CARDIZEM PO SCH ×2 (15:23→22:02)
--- NOTE | 2019-05-03 15:48 | PROGRESS NOTE ---
DATE: 05/03/2019 SUBJECTIVE: Patient has no major complaints. OBJECTIVE: Heart rate is under good control 89, blood pressure 137/79, respiratory rate 18, temperature 98.8 degrees. Her mental status is much better, 98% on 1 L.Cardiovascular: Regular rate and rhythm. Pulmonary: Bilateral breath sounds clear to auscultation. GI: Soft, nontender, nondistended. Bowel sounds were positive. Extremity: No clubbing or cyanosis. Lymphatic Exam: No peripheral edema. Neurological: Nonfocal. LABORATORY DATA: Her white count is 12, hemoglobin and hematocrit 14 and 46. Platelets 326,000, BUN and creatinine 26 and 1. Mag 1.9, potassium 3.8. PROBLEM LIST: 1. Atrial fibrillation/flutter with rapid ventricular response. She has converted. I am going to continue Cardizem and digoxin, avoiding beta blockers because of her chronic obstructive pulmonary disease. 2. Hypoxic respiratory failure associated with pneumonia. We are weaning O2 nicely. She seems to be doing better. 3. Due to depression with suicidal ideation that also seems to be stabilizing, but she will need psychiatric evaluation. I think we could probably do that tomorrow if everything looks normal. I think she is stable to go to the floor and we will continue to monitor. She will still need one-to-one unfortunately. cc: Christian Ricardo MD
[2019-05-03] MEDS: LEVAQUIN 750 MG/D5W 750 MG/150 ML IVPB IV SCH (17:26)
--- NOTE | 2019-05-03 18:59 | PULMONOLOGY PROGRESS NOTE ---
DATE: 05/03/2019 SUBJECTIVE: The patient is awake and alert. She makes eye contact. She will smile to her name being called. She does not engage in conversation. OBJECTIVE: Vital Signs: Blood pressure is 137/70 with a heart rate of 89, respirations 18, temperature is 98.8 degrees oral with O2 saturations of 98% on 2 L nasal cannula. Cardiovascular: Regular rate and rhythm. S1 and S2 appreciated. No murmurs. Pulmonary: Breath sounds are clear with no increased work of breathing noted. Chest rise falls symmetric with respiration. Gastrointestinal: Abdomen soft, nontender, nondistended. Bowel sounds in all 4 quadrants. Neurologic: She is alert. LAB: WBC is 12.8 with hemoglobin 15, hematocrit 46 and platelets 326,000. Sodium 144, potassium 3.8, BUN 26, creatinine 1 with a glucose of 101. ASSESSMENT AND PLAN: 1. Acute hypoxemic respiratory failure. wean oxygen as tolerated. 2. Intentional drug overdose. 3. Pneumonia. continue Levaquin. 4. Stress gastritis. Continue Prilosec. 5. Delirium. Anticipate need for inpatient psych eval. Plan was discussed with Dr. Lewis. Dictated by GUNJAN Chilel for Oscar Lewis MD cc: GUNJAN Chilel MD [facility]
[2019-05-03] MEDS: TYLENOL PO PRN (22:02)
[2019-05-03] MEDS: SEROQUEL PO SCH (22:02)
[2019-05-03] MEDS: ZYPREXA PO SCH (22:02)
[2019-05-03] MEDS: PRAVACHOL PO SCH (22:02)
[2019-05-03] MEDS: REMERON PO SCH (22:02)
[2019-05-03] MEDS: XALATAN 0.005% OPH SOLN BOTH EYES SCH (22:04)
[2019-05-04] MEDS: CARDIZEM PO SCH ×4 (03:02→20:31)
[2019-05-04] MEDS: LOVENOX SUBQ SCH (06:24)
[2019-05-04] MEDS: PRILOSEC PO SCH ×2 (06:24→06:26)
[2019-05-04 08:32] LABS: BASO# 0.05 X1000 (0.0-0.2); BASO% 0.4 % (0.0-0.8); EOS# 0.22 X1000 (0.0-0.7); EOS% 1.6 % (0.0-10.0); HEMATOCRIT 42.6 % (37.0-47.0); HEMOGLOBIN 13.9 g/dL (12.0-16.0); IMM GRAN% 0.7 % (0.0-0.5); LYMPH# 2.05 X1000 (1.2-3.4); LYMPH% 15.4 % (20.5-51.1); MCH 30.1 PG (27-31); MCHC 32.6 g/dL (33-37); MCV 92.2 FL (81-99); MPV 9.5 FL (7.4-10.4); NEUT# 9.73 X1000 (1.4-6.5); NEUT% 72.9 % (42.2-75.2); PLT 356 X1000 (130-400); RBC 4.62 XMIL (4.2-5.4); RDW 14.4 % (11.5-14.5); WBC 13.35 X1000 (4.8-10.8)
[2019-05-04 08:36] LABS: AGAP 10; BUN 34 mg/dL (8-22); CALCIUM 9.6 mg/dL (8.8-10.2); CHLORIDE 110 mmol/L (98-107); COSMO 296; CREATININE 0.9 mg/dL (0.5-0.9); ESTIMATED GFR > 60; GLUCOSE 123 mg/dL (70-104); POTASSIUM 4.1 mmol/L (3.5-5.1); SODIUM 144 mmol/L (136-145); TCO2 24 mmol/L (25-35)
[2019-05-04] MEDS: THERA M PLUS PO SCH (09:10)
[2019-05-04] MEDS: CYMBALTA PO SCH ×2 (09:10→20:30)
[2019-05-04] MEDS: MIRALAX PO SCH ×2 (09:10→20:31)
[2019-05-04] MEDS: LIORESAL PO SCH ×2 (09:10→20:30)
[2019-05-04] MEDS: ATROVENT NEB INH SCH ×3 (09:35→23:22)
[2019-05-04] MEDS: XOPENEX NEB INH SCH ×3 (09:36→23:22)
[2019-05-04] MEDS: COSOPT OPHTH SOLN BOTH EYES SCH ×2 (11:39→20:31)
--- NOTE | 2019-05-04 15:40 | PULMONOLOGY PROGRESS NOTE ---
DATE: 05/04/2019 SUBJECTIVE: The patient is awake and alert. She will make eye contact. She will smile to her name being called. She will nod yes and no today. When I ask her was she going to speak to me, she smiled and shook her head, no. OBJECTIVE: Vital Signs: Blood pressure is 105/65 with a heart rate of 90, respirations are 20, temperature is 98.3 degrees oral, O2 saturations are 92% to 94% on nasal cannula. Cardiovascular: Regular rate and rhythm. S1 and S2 are appreciated. Pulmonary: Breath sounds are clear with no increased work of breathing noted. Chest rises and falls symmetrically with respirations. Gastrointestinal: Soft, nontender, nondistended. Bowel sounds in all 4 quadrants. Extremities: No clubbing, cyanosis, or edema. Skin: Warm and dry. LABS: WBC is 13.3 with hemoglobin 13.9, hematocrit 42.6, and platelets of 356,000. Sodium 144, potassium 4.1, BUN 34, creatinine 0.9 with glucose of 123. ASSESSMENT AND PLAN: 1. Acute hypoxemic respiratory failure, improving. Wean oxygen as tolerated. 2. Intentional drug overdose. 3. Pneumonia, resolved. Chest x-ray 04/29/2019 reveals no pneumonia. 4. Stress gastritis. Prilosec. 5. Delirium. Plan was discussed with Dr. Lewis. Dictated by GUNJAN Chilel for Oscar Lewis MD cc: GUNJAN Chilel MD [facility]
[2019-05-04] MEDS: LEVAQUIN 750 MG/D5W 750 MG/150 ML IVPB IV SCH (17:21)
--- NOTE | 2019-05-04 17:44 | PROGRESS NOTE ---
DATE: 05/04/2019 SUBJECTIVE: Patient has no major complaints. She is still quiet, but doing okay. OBJECTIVE: Vital Signs: Blood pressure 132/65, heart rate of 81, respiratory rate 22, temperature 98.1 degrees, 93% on room air. Cardiovascular: Regular rate and rhythm. Pulmonary: Bilateral breath sounds clear to auscultation. GI: Soft, nontender, nondistended. Bowel sounds are positive. LABORATORY DATA: White count is 13, hemoglobin 13 and hematocrit 42, platelets of 356,000. Basic was normal. ASSESSMENT AND PLAN: 1. Atrial fibrillation flutter. She is stable on Cardizem and digoxin. Probably switch her to p.o. or long-acting in the next 24 hours. 2. Acute hypoxic respiratory failure due to aspiration event, pneumonia. Weaning O2. Pulmonary is following. She seems to be doing okay. 3. Depression with suicidal ideation. She is stable, still kind of off her baseline. I think she is probably stable to go to facility or at least get a psychiatric evaluation but she is still fairly weak so we will continue to monitor. I am going to say tomorrow if things are stable we will let her get a psych evaluation. cc: Christian Ricardo MD
[2019-05-04] MEDS: ZYPREXA PO SCH (20:30)
[2019-05-04] MEDS: REMERON PO SCH (20:30)
[2019-05-04] MEDS: SEROQUEL PO SCH (20:30)
[2019-05-04] MEDS: PRAVACHOL PO SCH (20:31)
[2019-05-04] MEDS: XALATAN 0.005% OPH SOLN BOTH EYES SCH (21:29)
[2019-05-05] MEDS: COSOPT OPHTH SOLN BOTH EYES SCH ×2 (02:03→10:45)
[2019-05-05] MEDS: CARDIZEM PO SCH ×3 (02:05→14:47)
[2019-05-05] MEDS: LOVENOX SUBQ SCH (04:59)
[2019-05-05] MEDS: PRILOSEC PO SCH (06:19)
[2019-05-05 08:22] LABS: BASO# 0.08 X1000 (0.0-0.2); BASO% 0.9 % (0.0-0.8); EOS# 0.24 X1000 (0.0-0.7); EOS% 2.6 % (0.0-10.0); HEMATOCRIT 43.8 % (37.0-47.0); HEMOGLOBIN 14.2 g/dL (12.0-16.0); IMM GRAN# 0.03 X1000 (0.0-0.04); IMM GRAN% 0.3 % (0.0-0.5); LYMPH# 2.18 X1000 (1.2-3.4); MCHC 32.4 g/dL (33-37); MCV 92.4 FL (81-99); MONO# 1.05 X1000 (0.11-0.59); MONO% 11.6 % (1.7-9.3); MPV 9.3 FL (7.4-10.4); NEUT% 60.6 % (42.2-75.2); PLT 366 X1000 (130-400); RBC 4.74 XMIL (4.2-5.4); RDW 14.4 % (11.5-14.5); WBC 9.08 X1000 (4.8-10.8)
[2019-05-05 08:32] LABS: AGAP 10; BUN 28 mg/dL (8-22); CALCIUM 9.4 mg/dL (8.8-10.2); CHLORIDE 107 mmol/L (98-107); COSMO 288; CREATININE 0.9 mg/dL (0.5-0.9); ESTIMATED GFR > 60; GLUCOSE 115 mg/dL (70-104); POTASSIUM 4.2 mmol/L (3.5-5.1); SODIUM 141 mmol/L (136-145); TCO2 24 mmol/L (25-35)
[2019-05-05] MEDS: LIORESAL PO SCH (08:50)
[2019-05-05] MEDS: CYMBALTA PO SCH (08:50)
[2019-05-05] MEDS: THERA M PLUS PO SCH (08:50)
[2019-05-05] MEDS: MIRALAX PO SCH (08:50)
[2019-05-05] MEDS: ATROVENT NEB INH SCH ×2 (11:01→15:43)
[2019-05-05] MEDS: XOPENEX NEB INH SCH ×2 (11:01→15:42)
[2019-05-05 15:43] VITALS: BP 121/90
[2019-05-06] MEDS ORDERED: LEVAQUIN PO SCH (09:00)
--- NOTE | 2019-05-06 10:42 | DISCHARGE SUMMARY ---
ADMISSION DATE: 04/26/2019 DISCHARGE DATE: 05/05/2019 DISCHARGE DIAGNOSES: 1. Pneumonia possible aspiration type. 2. Acute chronic obstructive pulmonary disease exacerbation. 3. Depression with initial suicidal ideation but no longer suicidal ideation. 4. Atrial fibrillation with rapid ventricular response. PROCEDURES: None. CONSULTATIONS: 1. Pulmonary, Dr. Lewis. 2. Cardiology, Dr. Elliott. HOSPITAL COURSE: This is a 68-year-old female who has depression, possibly mood disorder. She was found, she had voices in her head. She was admitted for drug overdose. She was given Narcan. She was hypopneic and I think she was intubated for airway protection. She had positive drug screen for benzodiazepines, methadone and marijuana. She is very angry about the methadone positivity when she came to and stated she denied any thing. Slowly, she improved. Septic shock, aspiration pneumonia, all that slowly improved. She was eventually taken off the ventilator. That was on the . She was kind of encephalopathic postop. On the , she developed atrial fibrillation with rapid ventricular response. She was placed on a Cardizem drip. Received digoxin and she spontaneously converted. We transitioned her over to Cardizem p.o. and she seems to be doing okay. EF on a previous echo was intact. Thyroid function was intact. We continued to monitor her and was feeling stable for discharge. Repeat chest x-ray was negative. She was evaluated by Lisa Chen and not felt appropriate for inpatient treatment. She also did not want inpatient treatment and we set her up for outpatient treatment. I had a long discussion with her. DISCHARGE MEDICATIONS: Latanoprost 0.005% both eyes at bedtime, baclofen 10 b.i.d., dorzolamide, timolol drops both eyes q. 12, duloxetine 20 b.i.d., mirtazapine 30 daily, olanzapine 5 daily, Seroquel 150 at bedtime, trazodone 150 daily, Valium 5 t.i.d., Zofran p.r.n., Pravachol 40 at bedtime, Cardizem CD 120, which is new, Combivent, Levaquin, MiraLAX, nicotine patch. There is no discussion about anticoagulation although she technically did qualify for it. She was very reluctant to start even an aspirin because she says her stomach is injured by it, but she is 68. She is female. She has had some issues with hypertension so I do think she qualifies for anticoagulation. We will recommend anticoagulation and follow. Of course, we will continue to monitor closely. DISCHARGE INSTRUCTIONS: Recommend follow up with Cardiology, which she wanted to follow up with her PCP before she would see a alteration manager. I indicated to her she had some refractory atrial flutter and recommend treatment. We will continue to monitor. cc: Christian Ricardo MD
== END 2019-05-05 17:05 | disposition home or self-care (01) | DRG 917 ==
LOC: SUPCPDRO → ED 21:05 → EDBD 21:05 → MERGE 04-26 02:42 → SUATTDRO 04-26 02:42 → ICU 04-26 02:42 → 2N 04-30 21:51 → 3N 05-03 16:05
PROVIDERS: ATTEND Internal Medicine

== ENCOUNTER 2019-08-09 09:37 | Inpatient (IN) ==
[2019-08-09] MEDS ORDERED: ROMAZICON IV ONE (10:09)
--- NOTE | 2019-08-09 10:49 | Diag Imaging Result Doc PS360 ---
EXAM: CHEST-PORTABLE HISTORY: unresponsive TECHNIQUE: Single view COMPARISON: 07/18/2019 FINDINGS: There are dense infiltrates throughout the right lung with atelectasis and a small effusion. The left lung is well expanded. No cardiomegaly. Shift of the mediastinum to the right. Granuloma in the left base. IMPRESSION: Right lung infiltrates and atelectasis with a small effusion. Electronically signed by Delvis Green 08/09/2019 10:46 AM
[2019-08-09 11:01] LABS: ALLEN TEST YES; BE 3.9 mmoll (-3.0-3.0); BLOOD TYPE ARTERIAL; HCO3-(ACT) 27.6 mmoll (20.0-26.0); METHB 0.8 % (0.0-1.5); O2(CT) 18.4 mL/dL (15.0-23.0); PO2(98.6) 65 mmHg (60-100); SAMPLE BLOOD; SAO2 96.2 % (95.0-100.0); THB 15.1 g/dL (11.5-17.4); pH(98.6) 7.27 (7.35-7.45)
[2019-08-09 11:02] LABS: MODALITY NRB
[2019-08-09 11:04] LABS: O2HB 86.8 % (95.0-99.0); PCO2(98.6) 73 mmHg (35-45)
[2019-08-09] MEDS ORDERED: ZOSYN 3.375 GM in NS 50 ML IV ONE (11:12)
[2019-08-09] MEDS ORDERED: VANCOMYCIN IV PER PHARMACY MISC SCH (11:15)
[2019-08-09 11:18] LABS: BASO# 0.01 X1000 (0.0-0.2); BASO% 0.1 % (0.0-0.8); EOS# 0.16 X1000 (0.0-0.7); EOS% 1.3 % (0.0-10.0); HEMATOCRIT 49.3 % (37.0-47.0); HEMOGLOBIN 14.8 g/dL (12.0-16.0); IMM GRAN# 0.02 X1000 (0.0-0.04); IMM GRAN% 0.2 % (0.0-0.5); LYMPH# 0.89 X1000 (1.2-3.4); LYMPH% 7.1 % (20.5-51.1); MCH 29.4 PG (27-31); MONO# 1.29 X1000 (0.11-0.59); MONO% 10.3 % (1.7-9.3); MPV 9.2 FL (7.4-10.4); NEUT# 10.11 X1000 (1.4-6.5); PLT 426 X1000 (130-400); RBC 5.03 XMIL (4.2-5.4); RDW 15.1 % (11.5-14.5); WBC 12.48 X1000 (4.8-10.8)
[2019-08-09 11:33] LABS: INR 0.89; PROTIME 12.1 Seconds (11.0-16.0)
[2019-08-09 11:34] LABS: PTT 29.5 Seconds (22.3-41.8)
[2019-08-09 11:41] LABS: AGAP 11; ALB/GLOB RATIO 1.7; ALKALINE PHOSPHATASE 92 U/L (32-104); BUN 22 mg/dL (8-22); CALCIUM 9.6 mg/dL (8.8-10.2); CHLORIDE 102 mmol/L (98-107); COSMO 287; CREATININE 0.9 mg/dL (0.5-0.9); ESTIMATED GFR > 60; GLUCOSE 117 mg/dL (70-104); GOT 22 U/L (10-30); GPT 13 U/L (10-36); SODIUM 142 mmol/L (136-145); TCO2 29 mmol/L (25-35); TOTAL BILIRUBIN < 0.15 mg/dL (0.20-1.00); TOTAL PROTEIN 6.3 g/dL (6.3-8.3)
[2019-08-09 11:49] LABS: CK PROFILE 909 U/L (24-173)
[2019-08-09 12:01] LABS: URINE SOURCE CATH
[2019-08-09 12:07] LABS: BILIRUBIN URINE NEGATIVE (NEGATIVE); BLOOD URINE TRACE (NEGATIVE); COLOR YELLOW; GLUCOSE URINE NEGATIVE (NEGATIVE); KETONE URINE NEGATIVE (NEGATIVE); LEUKOCYTES URINE NEGATIVE (NEGATIVE); NITRITE URINE NEGATIVE (NEGATIVE); PH URINE 5.5; PROTEIN URINE TRACE mg/dL (NEGATIVE); SP GRAVITY URINE 1.019; TURBIDITY URINE CLEAR (CLEAR); UR EPITHELIAL CELLS <10 /HPF (<10); URINE BACTERIA NEGATIVE /HPF; URINE RBC <10 /HPF (<10); URINE WBC <10 /HPF (<10); UROBILINOGEN URINE NORMAL (NORMAL)
[2019-08-09 12:09] LABS: CK INDEX 0.7 (0.0-2.5); CK-MB 6.71 ng/mL (0.0-5.0)
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
[2019-08-09] MEDS ORDERED: VANCOMYCIN 1,600 MG in NS 250 ML IV ONE (13:00)
[2019-08-09] MEDS ORDERED: ZOFRAN IV PRN (13:34)
[2019-08-09] MEDS: DUONEB (A & A) INH SCH ×4 (13:45→23:40)
[2019-08-09 14:15] LABS: UR AMPHETAMINES QUAL NONE DETECTED (NONE DETECT); UR BARBITUATES QUAL NONE DETECTED (NONE DETECT); UR BENZODIAZEPIN QUAL PRESUMPTIVE POSITIVE (NONE DETECT); UR CANNABINOIDS QUAL PRESUMPTIVE POSITIVE (NONE DETECT); UR COCAINE QUAL NONE DETECTED (NONE DETECT); UR METHADONE QUAL NONE DETECTED (NONE DETECT); UR OPIATES QUAL NONE DETECTED (NONE DETECT); UR OXYCODONE QUAL NONE DETECTED (NONE DETECT); UR PCP QUAL NONE DETECTED (NONE DETECT)
[2019-08-09] MEDS: NS 1,000 ML IV SCH (14:38)
--- NOTE | 2019-08-09 15:07 | Diag Imaging Result Doc PS360 ---
EXAM: CHEST-PORTABLE HISTORY: Follow up right lung collapse TECHNIQUE: Single view COMPARISON: 08/09/2019 FINDINGS: Partial reexpansion of the right lung. Atelectasis and/or infiltrates remain in the right base. Small moderate right pleural effusion persists. No cardiomegaly. The left lung is well expanded and clear. IMPRESSION: Interval improvement Electronically signed by Delvis Green 08/09/2019 3:04 PM
--- NOTE | 2019-08-09 15:09 | Diag Imaging Result Doc PS360 ---
EXAM: ABDOMEN FLAT/UPRIGHT HISTORY: Eval for SBO/COnstipation TECHNIQUE: Two views COMPARISON: None. FINDINGS: The gallbladder has been removed. No organomegaly. Air-filled loops of small bowel. There is a distal colon. There are several pelvic phleboliths. The right hip has been replaced. IMPRESSION: Likely ileus with mild constipation Electronically signed by Delvis Green 08/09/2019 3:07 PM
[2019-08-09] MEDS ORDERED: LASIX IV ONE (15:22)
[2019-08-09 15:30] LABS: ALLEN TEST YES; BE 2.3 mmoll (-3.0-3.0); BLOOD TYPE ARTERIAL; HCO3-(ACT) 26.7 mmoll (20.0-26.0); METHB 0.9 % (0.0-1.5); O2(CT) 19.3 mL/dL (15.0-23.0); PO2(98.6) 207 mmHg (60-100); SAMPLE BLOOD; SAO2 100.1 % (95.0-100.0); SRATE 16 BPM; THB 14.1 g/dL (11.5-17.4)
[2019-08-09 15:32] LABS: MODALITY BI PAP
[2019-08-09 15:34] LABS: PCO2(98.6) 85 mmHg (35-45)
[2019-08-09] MEDS ORDERED: ROMAZICON IV STA (15:36)
[2019-08-09] MEDS: HUMULIN R SUBQ SCH ×2 (16:00→22:51)
--- NOTE | 2019-08-09 16:21 | HISTORY AND PHYSICAL ---
ADDENDUM TO HISTORY AND PHYSICAL DICTATED BY THE NURSE PRACTITIONER: I agree with most components of history, physical, assessment, and plan. HISTORY OF PRESENT ILLNESS: In brief, Miss Rebecca Lewis is a 68-year-old lady with past medical history of anxiety, depression, transient ischemic attacks, chronic hepatitis C, and active tobacco abuse with possible COPD who came in when she was found on the floor with vomitus. Someone had called EMS, probably her sister who had left before the EMS could arrive. The EMS arrived. The patient was found to have oxygen saturation of 60% and about 100 mL of vomitus was suctioned out. She was brought to the emergency room. In the emergency room on presentation she was found to have temperature of 97.6 degrees, pulse of 89, respiratory rate of 26, blood pressure of 121/81, and her oxygen saturation was 91% on 100% non-rebreather mask. Initial labs had WBC of 12,000 and hypoxic hypercapnic respiratory failure with pO2 of 65 and pCO2 of 73. Chest x-ray had collapse of the right lung. She was started on BiPAP and hospitalist was consulted for further management. At the time of my evaluation, Miss Fernandez has become a little more alert and, though she is drowsy, follows simple commands. She is on BiPAP right now and eliciting history has been challenging, but she definitely denies chest pain, shortness of breath, or cough. She is complaining of abdominal discomfort and nausea. PHYSICAL EXAMINATION: VITAL SIGNS: Currently temperature of 97.6 degrees, pulse 86, respiratory rate 19, blood pressure 129/79, and she is saturating 100% on BiPAP. HEENT: I could not examine the oral cavity. PULMONARY: She has diminished air entry on right lung field. Adequate air entry on left lung field. There are crackles on the left infrascapular region. There is almost no air entry on right infrascapular region. CARDIOVASCULAR: S1, S2 normal. No murmur or gallop. ABDOMEN: Distended, soft, nontender, and tympanic to percussion. It was hard to appreciate bowel sounds considering she was on BiPAP. EXTREMITIES: No lower extremity edema. GENITOURINARY: She did not have urine catheter. NEUROLOGIC: She was drowsy, but easily arousable. Her pupils were bilaterally equal and reacting to light. Her sensations were intact to bilateral upper and lower extremities to painful stimuli. She was able to raise both upper extremities and lower extremities above ground level. She was able to reposition herself. I could not check any dysdiadochokinesia. LABORATORIES: WBC 12,000, hemoglobin 14.8. The pH 7.27, pCO2 of 73, pO2 of 65, and 100% non- rebreather. Urine toxicology positive for benzodiazepine and cannabis. Blood cultures are in lab. STUDIES: Repeat chest x-ray suggests improvement in aeration. ASSESSMENT AND PLAN: 1. Acute hypoxic hypercapnic respiratory failure. Differential includes aspiration pneumonia affecting right lung with atelectasis involving right lung due to aspiration of gastric contents. 2. Aspiration pneumonia due to vomiting due to constipation and small bowel ileus. 3. Hypercapnic respiratory failure in the setting of benzodiazepine use. 4. Constipation. 5. History of anxiety and depression. 6. Active tobacco abuse. PLAN: 1. I will continue the patient on BiPAP and start her on bronchial hygiene, including inhaled bronchodilators, inhaled acetylcysteine, cough and deep breath exercise, and frequent body positioning change. I will also start her incentive spirometry when she is off BiPAP, and I encouraged her to cough which she was able to. Give 1-time intravenous Lasix. Follow up with chest x-ray tomorrow morning and ABG to monitor her response. 2. I would withhold any benzodiazepines for now. She would need substance use disorder counseling. 3. I will start her on prophylactic intravenous antibiotics. I will start her on intravenous pantoprazole and intravenous Zofran. 4. Insert [place] catheter for close input and output monitoring. DISPOSITION: Continue monitor the patient in a closely-supervised telemetry unit. TOTAL TIME SPENT: Thirty-five minutes of critical care time was spent taking care of this patient. Plan of care discussed with her. Her questions have been answered. cc: Chavez Bruno MD
[2019-08-09] MEDS: PROTONIX IV SCH (16:22)
--- NOTE | 2019-08-09 16:57 | HISTORY AND PHYSICAL ---
ADDENDUM: Unfortunately, Miss Fernandez' ABG suggested worsening hypercapnia with respiratory acidosis. I evaluated her at the bedside. I also discussed with the emergency room nurse. However, clinically Miss Fernandez appears more awake and alert than on her presentation. She is following simple commands. She is still drowsy. I added a second dose of flumazenil. I discussed with the respiratory therapist about changing the BiPAP parameters, including increasing the respiratory rate and decreasing FiO2. I am going to repeat ABG within 1 hour. If her respiratory acidosis or clinical examination worsens, we would end up intubating her. I discussed that with Miss Fernandez. She understands it and agrees with the plan. ADDITIONAL TIME SPENT: Additional 30 minutes of time has been spent. cc: Chavez Bruno MD
[2019-08-09 17:39] LABS: ALLEN TEST YES; BE 4.4 mmoll (-3.0-3.0); BLOOD TYPE ARTERIAL; HCO3-(ACT) 28.3 mmoll (20.0-26.0); METHB 0.9 % (0.0-1.5); O2(CT) 20.9 mL/dL (15.0-23.0); O2HB 95.9 % (95.0-99.0); PO2(98.6) 111 mmHg (60-100); SAMPLE BLOOD; SAO2 99.3 % (95.0-100.0); SRATE 20 BPM; THB 15.4 g/dL (11.5-17.4); pH(98.6) 7.29 (7.35-7.45)
[2019-08-09 17:44] LABS: MODALITY BI PAP; PCO2(98.6) 70 mmHg (35-45)
[2019-08-09] MEDS: ZOSYN 3.375 GM in NS 50 ML IV SCH (18:00)
--- NOTE | 2019-08-09 18:31 | EKG Report ---
Test Performed on : 08/09/2019 11:53:12 AM Test Reason : unresponsive Blood Pressure : / mmHG Vent. Rate : 087 BPM Atrial Rate : 087 BPM P-R Int : 130 ms QRS Dur : 084 ms QT Int : 388 ms P-R-T Axes : 067 085 066 degrees QTc Int : 466 ms Normal sinus rhythm. Normal ECG Unconfirmed Result
[2019-08-09] MEDS: MUCOMYST 20% INH SCH (19:35)
--- NOTE | 2019-08-09 20:35 | HISTORY AND PHYSICAL ---
PRIMARY CARE PROVIDER: No one. CHIEF COMPLAINT: Was found unresponsive with low O2 saturations. HISTORY OF PRESENT ILLNESS: Ms. Sanna Lewis is a 68-year-old female currently much more alert on BiPAP, but she is still confused, was reported to be found at home unresponsive in the floor with vomit around her and O2 saturations in the 60% range. She was placed on BiPAP and brought in. Imaging shows that there has been some aspiration pneumonia. She was given Narcan and Romazicon both and apparently became more alert after that. She has been started on Zosyn and will monitor her in the ICU for now. PAST MEDICAL HISTORY: 1. Diabetes mellitus type 2. 2. Hypertension. 3. Hyperlipidemia. 4. History of TIA. 5. Hepatitis C. 6. COPD. 7. History of depression. 8. History of suicide attempt. 9. Glaucoma. SURGICAL HISTORY: 1. Hysterectomy. 2. Joint replacement of her hip. 3. Cataract surgery. 4. Arthroscopy of the knee. SOCIAL HISTORY: Smokes less than a half pack per day. In the past, it looks like she denies illicit drug use, but she is positive for marijuana. FAMILY HISTORY: Unknown. REVIEW OF SYSTEMS: She only complains of being thirsty, otherwise, could not get really any other information from her. PHYSICAL EXAMINATION: VITAL SIGNS: Temperature 97.6 degrees, heart rate 86, respiratory rate 19, blood pressure 129/79, O2 saturation 100% on BiPAP. GENERAL: Ms. Sanna claros is a 68-year-old female. She is in no acute distress. She is tolerating the BiPAP. HEENT: Atraumatic, normocephalic. Pupils are equal and reactive. Mucous membranes are dry. NECK: Trachea midline. CARDIOVASCULAR: S1, S2. Regular rate and rhythm. No rubs, gallops, or murmurs. Trace lower extremity edema, +2 dorsalis and radial pulses. Negative JVD or carotid bruits. PULMONARY: Decreased in the bases. No accessory muscle use or work of breathing noted. She is tolerating BiPAP. GI: Soft, nontender, nondistended. Positive bowel sounds x4. EXTREMITIES: Moves all extremities equally. Decreased range of motion. NEUROLOGIC: Oriented to name only, confused conversation. SKIN: Warm, dry, intact but pale. LABORATORY DATA: White blood cells 12,000, hemoglobin 14, hematocrit 49, platelet count 426,000. INR 0.89, PTT 29.5. ABGs on nonrebreather is 7.27, pCO2 73, pO2 65, bicarbonate 27, base excess 3.9, saturation 86%. Lactate 0.6. Sodium 142, potassium is 5.0, BUN 22, creatinine 0.9, glucose 117, calcium 9.6, bilirubin is less than 0.15, AST 22, ALT 13. CK 909, MB 6.71, troponin 16. Albumin 4.0, lactate 0.8. Urinalysis: Trace protein, trace blood, otherwise negative. Benzodiazepines positive, cannabinoids positive, alcohol negative. MICROBIOLOGY: Blood cultures obtained. IMAGING: Chest x-ray: Right lung infiltrates and atelectasis with a small effusion. Abdominal x- ray and repeat chest x-ray has been ordered. ASSESSMENT AND PLAN: 1. Acute hypercarbic hypoxemic respiratory failure with history of chronic obstructive pulmonary disease. Nebulizers, antibiotic therapy, started, currently on BiPAP. 2. Metabolic encephalopathy, should improve with oxygenation and decrease in her CO2. 3. Possible overdose, was found unresponsive and positive for benzodiazepines, which she actually is prescribed. 4. Right lung aspiration pneumonia. Was found in vomit when EMS got there. Currently on Zosyn. 5. Diabetes mellitus type 2. Will do pattern blood glucoses, sliding scale insulin. Dictated by GUNJAN Andrew for Chavez Bruno MD cc: GUNJAN Andrew MD I agree with most components of history, physical, assessement and plan. A separate addendum has been dictated. [facility]
[2019-08-09] MEDS: DULCOLAX PR SCH ×2 (22:12→22:51)
[2019-08-09 23:21] LABS: AGAP 16; ALB/GLOB RATIO 1.6; ALBUMIN 3.7 g/dL (3.5-5.0); ALKALINE PHOSPHATASE 88 U/L (32-104); BUN 17 mg/dL (8-22); CALCIUM 9.1 mg/dL (8.8-10.2); CHLORIDE 102 mmol/L (98-107); COSMO 289; CREATININE 0.9 mg/dL (0.5-0.9); ESTIMATED GFR > 60; GLUCOSE 83 mg/dL (70-104); GOT 27 U/L (10-30); GPT 11 U/L (10-36); POTASSIUM 4.4 mmol/L (3.5-5.1); SODIUM 145 mmol/L (136-145); TCO2 27 mmol/L (25-35); TOTAL BILIRUBIN 0.35 mg/dL (0.20-1.00)
[2019-08-09 23:23] LABS: CK PROFILE 764 U/L (24-173)
[2019-08-09 23:24] LABS: BASO# 0.02 X1000 (0.0-0.2); BASO% 0.1 % (0.0-0.8); EOS% 0.7 % (0.0-10.0); HEMATOCRIT 47.4 % (37.0-47.0); HEMOGLOBIN 14.5 g/dL (12.0-16.0); IMM GRAN# 0.02 X1000 (0.0-0.04); IMM GRAN% 0.1 % (0.0-0.5); LYMPH# 1.23 X1000 (1.2-3.4); LYMPH% 8.9 % (20.5-51.1); MCH 29.4 PG (27-31); MCHC 30.6 g/dL (33-37); MCV 96.1 FL (81-99); MONO# 1.19 X1000 (0.11-0.59); MONO% 8.6 % (1.7-9.3); MPV 9.2 FL (7.4-10.4); NEUT# 11.21 X1000 (1.4-6.5); NEUT% 81.6 % (42.2-75.2); PLT 390 X1000 (130-400); RBC 4.93 XMIL (4.2-5.4); RDW 14.9 % (11.5-14.5); WBC 13.77 X1000 (4.8-10.8)
[2019-08-09 23:27] LABS: INR 0.93; PROTIME 12.5 Seconds (11.0-16.0)
[2019-08-09 23:28] LABS: PTT 28.9 Seconds (22.3-41.8)
[2019-08-09 23:41] LABS: CK INDEX 0.6 (0.0-2.5); CK-MB 4.61 ng/mL (0.0-5.0)
[2019-08-10] MEDS: ZOSYN 3.375 GM in NS 50 ML IV SCH ×5 (00:21→23:29)
[2019-08-10] MEDS ORDERED: TYLENOL PO PRN (03:00)
[2019-08-10] MEDS ORDERED: TYLENOL PR PRN (03:00)
[2019-08-10] MEDS: NS 1,000 ML IV SCH (03:42)
[2019-08-10] MEDS ORDERED: D50W SYRINGE IV ONE (05:38)
[2019-08-10 05:59] LABS: ALLEN TEST YES; BE 6.7 mmoll (-3.0-3.0); BLOOD TYPE ARTERIAL; HCO3-(ACT) 30.1 mmoll (20.0-26.0); METHB 1.1 % (0.0-1.5); O2(CT) 19.4 mL/dL (15.0-23.0); O2HB 96.8 % (95.0-99.0); PCO2(98.6) 32 mmHg (35-45); PO2(98.6) 104 mmHg (60-100); SAMPLE BLOOD; SAO2 99.4 % (95.0-100.0); THB 14.2 g/dL (11.5-17.4)
[2019-08-10 06:00] LABS: MODALITY BI PAP; pH(98.6) 7.56 (7.35-7.45)
[2019-08-10 07:31] LABS: BASO# 0.02 X1000 (0.0-0.2); BASO% 0.2 % (0.0-0.8); EOS# 0.15 X1000 (0.0-0.7); EOS% 1.3 % (0.0-10.0); HEMATOCRIT 43.6 % (37.0-47.0); HEMOGLOBIN 13.5 g/dL (12.0-16.0); IMM GRAN# 0.02 X1000 (0.0-0.04); IMM GRAN% 0.2 % (0.0-0.5); LYMPH# 1.56 X1000 (1.2-3.4); MCH 29.5 PG (27-31); MCV 95.2 FL (81-99); MONO# 1.11 X1000 (0.11-0.59); MONO% 9.9 % (1.7-9.3); MPV 9.8 FL (7.4-10.4); NEUT# 8.32 X1000 (1.4-6.5); NEUT% 74.4 % (42.2-75.2); PLT 416 X1000 (130-400); RBC 4.58 XMIL (4.2-5.4); RDW 14.9 % (11.5-14.5); WBC 11.18 X1000 (4.8-10.8)
[2019-08-10] MEDS: DUONEB (A & A) INH SCH ×5 (07:43→23:45)
[2019-08-10] MEDS: MUCOMYST 20% INH SCH ×2 (07:43→20:02)
[2019-08-10] MEDS: HUMULIN R SUBQ SCH ×4 (07:52→20:53)
[2019-08-10] MEDS ORDERED: LASIX IV ONE ×2 (07:55→16:00)
--- NOTE | 2019-08-10 07:55 | Diag Imaging Result Doc PS360 ---
EXAM: CHEST-PORTABLE - 08/10/2019 HISTORY: resp failure TECHNIQUE: Portable chest COMPARISON: 08/09/2019 FINDINGS: There is been mild decrease in airspace disease and pleural fluid on the right. There is an air-fluid level of the right base. There is no other pneumothorax identified. The left lung remains mostly clear. There is no evidence of pneumothorax. Heart size is normal. IMPRESSION: Mild decrease in airspace disease and pleural fluid on the right. There is an air-fluid level in the right base. Electronically signed by Christ Mcdonald 08/10/2019 7:52 AM
[2019-08-10 09:21] LABS: AGAP 10; ALB/GLOB RATIO 1.2; ALBUMIN 3.3 g/dL (3.5-5.0); ALKALINE PHOSPHATASE 79 U/L (32-104); BUN 19 mg/dL (8-22); CALCIUM 8.6 mg/dL (8.8-10.2); CHLORIDE 101 mmol/L (98-107); COSMO 282; CREATININE 0.9 mg/dL (0.5-0.9); ESTIMATED GFR > 60; GLUCOSE 105 mg/dL (70-104); GOT 22 U/L (10-30); GPT 11 U/L (10-36); MAGNESIUM 1.7 mg/dL (1.5-2.7); POTASSIUM 3.2 mmol/L (3.5-5.1); SODIUM 140 mmol/L (136-145); TCO2 29 mmol/L (25-35); TOTAL BILIRUBIN 0.46 mg/dL (0.20-1.00)
[2019-08-10] MEDS: MIRALAX PO SCH ×2 (10:05→20:54)
[2019-08-10] MEDS: DULCOLAX PR SCH ×2 (10:06→20:53)
[2019-08-10] MEDS: KLOR-CON PO SCH ×2 (10:06→12:54)
[2019-08-10] MEDS: CARDIZEM CD PO SCH (10:07)
--- NOTE | 2019-08-10 10:11 | PROGRESS NOTE ---
DATE: 08/10/2019 INTERVAL HISTORY: Ms. Rebecca Lewis was transferred to ICU overnight. She remained on BiPAP. Her ABG had suggested improvement. We discussed about transitioning her to nasal cannula. Her pCO2 was improving. SUBJECTIVE: Ms. Rebecca Lewis is feeling much better. She denies any chest pain, shortness of breath. She is coughing and feels like she would make sputum. She could not recall the events leading to her admission. The last thing she could remember was she was going to the bathroom and then the next thing she could remember, she was in the emergency room. She denies remembering any quarrel with her sister. MEDICATIONS: She is currently on acetaminophen, acetylcysteine, DuoNebs, Dulcolax suppository, insulin Humulin sliding scale, Zofran, Protonix, Zosyn, and potassium chloride. REVIEW OF SYSTEMS: Positive for cough. Negative for dysphagia. Negative for odynophagia. Negative for headache. Positive for back pain. VITALS: Temperature of 99.1 degrees, pulse 85, respiratory rate 21, blood pressure 129/88, saturating 94% on Venturi mask. PHYSICAL EXAMINATION: Not in any acute distress. Oral cavity is moist. She has better aeration of her right lung as compared to before, though she does have significantly decreased air entry on the right infrascapular region, with inspiratory crackles. She has inspiratory crackles in the left infrascapular region as well. S1, S2 normal. No murmur, rub, or gallop. Abdomen: Soft, nontender. Active bowel sounds. She has a urine catheter. No lower extremity edema. She is alert. She is oriented x3. She is requesting ice chips. LABS: Suggestive of WBC 11,000, hemoglobin 13.5, platelets 416,000. PH is 7.5, pCO2 of 30, PO2 of 104. She is on 60% BiPAP. Potassium of 3.2, currently being repleted. Blood glucose is 161. Lactic acidosis has resolved. Acute kidney injury has resolved. No positive microbiological data. Chest x-ray this morning suggests mild decrease in the airspace disease and pleural fluid on the right with mild air-fluid level. I will monitor it with daily chest x- ray. ASSESSMENT AND PLAN: 1. Sepsis and Acute hypoxic, hypercapnic respiratory failure due to right lung aspiration pneumonia associated with likely parapneumonic effusion and atelectasis, likely due to aspiration of gastric contents in the setting of chronic benzodiazepine use. Continue inhaled bronchodilator, inhaled acetylcysteine, intravenous Lasix, intravenous Zosyn. Follow up chest x-ray, ABG, blood culture and sputum culture data. We discussed about tapering down and possibly taking her off benzodiazepines as it could have been a contributing factor. 2. Small bowel ileus due to constipation. I will continue bisacodyl suppositories and start her on MiraLAX. 3. History of anxiety and depression. Her medication needs to be reconciled. I will resume them as tolerated. 4. History of AFib/Flutter: Start home Dilitiazem and Xarelto. 4. Active tobacco abuse. She was counseled about tobacco cessation. She denies known history of chronic obstructive pulmonary disease, though she is taking inhalers at home. 5. Cannabis use disorder. She was counseled about not using cannabis in the future. 6. Acute encephalopathy due to acute hypercapnic respiratory failure, now appears to be improving. She denies using Valium more than what she was prescribed. 7. Others. Continue pantoprazole for stress ulcer prophylaxis Thirty-five minutes of critical care time were spent in taking care of this patient. Plan of care was discussed with her. She was allowed to ask questions. All questions have been answered. cc: Chavez Bruno MD MTDD
[2019-08-10] MEDS: SODIUM CHLORIDE 0.9% INJ SCH (11:45)
[2019-08-10] MEDS: PROTONIX IV SCH (11:45)
[2019-08-10] MEDS ORDERED: VANCOMYCIN 1,250 MG in NS 250 ML IV SCH (13:00)
--- NOTE | 2019-08-10 15:32 | SEPSIS: TISSUE PERFUSION ASSMT ---
Sepsis: Tissue Perfusion Assmt - Physical Exam Assessment Date: 08/09/19 Time Assessment Initialized: 16:00 Vital Signs: Last Vital Signs Temp 99.3 F 08/10/19 12:00 Pulse 78 08/10/19 15:20 Resp 19 08/10/19 15:20 BP 133/85 08/10/19 12:43 Pulse Ox 99 08/10/19 12:43 Height 5 ft 5 in Weight 60.866 kg Lung Sounds: diminished (On the right lung) Heart Sounds: Regular Capillary Refill Time: Less Than 2 Seconds Peripheral Pulse Evaluation: radial (R): 2+, radial (L): 2+, dorsalis-pedis (R): 2+, dorsalis-pedis (L): 2+, posterior tibialis (R): 2+, posterior tibialis (L): 2+ Skin Exam: pink - Alternative Fluid Bolus Bolus Option: Alternative Fluid Resuscitation Bolus for morbidly obese patients with a BMI >30, Refer to [facility] [place] Body Weight Chart for Reference. - Impression Impression: Tissue Perfusion Adequate (NO IV fluid boluses as patient has right lung effusion. I will give Lasix.)
[2019-08-10] MEDS ORDERED: LOVENOX SUBQ SCH (16:00)
[2019-08-10] MEDS: XARELTO PO SCH (16:59)
[2019-08-11 05:44] LABS: ALLEN TEST YES; BE 10.1 mmoll (-3.0-3.0); BLOOD TYPE ARTERIAL; HCO3-(ACT) 32.7 mmoll (20.0-26.0); METHB 1.1 % (0.0-1.5); O2(CT) 19.6 mL/dL (15.0-23.0); PO2(98.6) 71 mmHg (60-100); SAMPLE BLOOD; SAO2 96.6 % (95.0-100.0); THB 14.8 g/dL (11.5-17.4); pH(98.6) 7.42 (7.35-7.45)
[2019-08-11 05:45] LABS: MODALITY BI PAP
[2019-08-11 06:02] LABS: BASO# 0.03 X1000 (0.0-0.2); BASO% 0.3 % (0.0-0.8); EOS# 0.29 X1000 (0.0-0.7); EOS% 3.3 % (0.0-10.0); HEMATOCRIT 44.7 % (37.0-47.0); HEMOGLOBIN 14.3 g/dL (12.0-16.0); IMM GRAN# 0.02 X1000 (0.0-0.04); IMM GRAN% 0.2 % (0.0-0.5); LYMPH# 1.63 X1000 (1.2-3.4); LYMPH% 18.6 % (20.5-51.1); MCH 29.2 PG (27-31); MCV 91.4 FL (81-99); MONO# 0.92 X1000 (0.11-0.59); MONO% 10.5 % (1.7-9.3); NEUT# 5.88 X1000 (1.4-6.5); NEUT% 67.1 % (42.2-75.2); PLT 410 X1000 (130-400); RBC 4.89 XMIL (4.2-5.4); RDW 14.9 % (11.5-14.5); WBC 8.77 X1000 (4.8-10.8)
[2019-08-11] MEDS: ZOSYN 3.375 GM in NS 50 ML IV SCH ×3 (06:20→20:32)
[2019-08-11] MEDS: HUMULIN R SUBQ SCH ×4 (06:21→20:33)
--- NOTE | 2019-08-11 06:31 | Diag Imaging Result Doc PS360 ---
EXAM: CHEST-PORTABLE 08/11/2019 HISTORY: dyspnea TECHNIQUE: AP portable at 0538. COMMENT: There is pleural thickening and/or fluid on the right. The inspiration is less optimal than on 08/10/2019. There are calcified granulomata at the left base. Otherwise are has been no significant change since previous study. IMPRESSION: Stable chest. Electronically signed by Rodriguez Blankenship 08/11/2019 6:29 AM
[2019-08-11 06:35] LABS: ALB/GLOB RATIO 1.3; ALBUMIN 3.5 g/dL (3.5-5.0); CALCIUM 8.7 mg/dL (8.8-10.2); MAGNESIUM 1.7 mg/dL (1.5-2.7); TOTAL BILIRUBIN 0.37 mg/dL (0.20-1.00); TOTAL PROTEIN 6.3 g/dL (6.3-8.3)
[2019-08-11 07:06] LABS: PCO2(98.6) 57 mmHg (35-45)
[2019-08-11] MEDS: MUCOMYST 20% INH SCH ×2 (08:21→23:45)
[2019-08-11] MEDS: DUONEB (A & A) INH SCH ×5 (08:21→23:45)
[2019-08-11] MEDS: DULCOLAX PR SCH ×3 (09:26→20:46)
[2019-08-11] MEDS: MIRALAX PO SCH ×2 (09:33→20:31)
[2019-08-11] MEDS: CARDIZEM CD PO SCH (09:33)
[2019-08-11] MEDS ORDERED: COSOPT OPHTH SOLN BOTH EYES SCH (10:45)
[2019-08-11] MEDS: BIDEX PO SCH ×4 (11:31→20:32)
[2019-08-11] MEDS: LASIX PO SCH (11:31)
--- NOTE | 2019-08-11 13:36 | PROGRESS NOTE ---
DATE: 08/11/2019 INTERVAL HISTORY: Ms. Fernandez was transferred from ICU to [facility] yesterday, and she has not had any acute events since then. Her oxygen requirement has remained stable and she has been switching between Venturi mask and BiPAP. She unfortunately has not had any bowel movement. SUBJECTIVE: She is feeling better. She denies any chest pain, shortness of breath. She is occasionally coughing, but she has not produced sputum for sample, and I discussed with the nursing team about giving her a container. We discussed about physical activity, coughing and deep breathing and using incentive spirometry. REVIEW OF SYSTEMS: Negative for chest pain, shortness of breath, palpitation. Negative for nausea, vomiting or abdominal pain. VITALS: Currently, temperature 98.1 degrees, pulse 80, respiratory rate 18, blood pressure 124/80, saturating 95% on Venturi mask. PHYSICAL EXAMINATION: General: Not in acute distress. Mouth: Oral cavity is moist. Lungs: She has crackles bilateral infrascapular region. She had decreased air entry in the right infrascapular region. Cardiovascular: S1, S2 normal. No murmur or gallop. Abdomen: Soft, nontender. Active bowel sounds. : She has a urine catheter. Extremities: No lower extremity edema. Neurologic: She is alert and oriented x3. She has been tolerating diet well so far. LABS: WBC 8000, hemoglobin 14.3, platelet 410. ABG suggestive of hypercapnia with normal pH, adequate oxygenation on 50%. She has a sodium of 134. Her hypokalemia has been repleted. Creatinine of 1, blood sugar 133. No positive blood culture data. X-RAYS: Chest x-ray this morning suggests stable chest. There was fluid on the right side of the lung. INPUT AND OUTPUT: She was -4.7 L yesterday. ASSESSMENT AND PLAN: 1.Sepsis and acute hypoxic hypercapnic respiratory failure due to right lung aspiration pneumonia associated with likely parapneumonic effusion and atelectasis due to aspiration of gastric contents in the setting of benzodiazepine use. Continue inhaled bronchodilators, inhaled acetylcysteine, change to oral Lasix, intravenous Zosyn. Follow sputum culture, chest x-ray, ABG. Continue incentive spirometry. Physical therapy. Cough and deep breathing exercise. 2. Small bowel ileus due to constipation. She has active bowel sounds on examination. She has not had a bowel movement. She has been refusing suppositories, and I advised her to take it. I will add lactulose as well. 3. History of anxiety and depression. I will resume her aripiprazole and olanzapine. She is also listed to be taking mirtazapine and quetiapine and duloxetine. I will resume them in the future as tolerated. 4. History of atrial fibrillation, atrial flutter. Continue home diltiazem, Xarelto. Currently, she is in normal sinus rhythm. 5. Active tobacco abuse. She was counseled about tobacco cessation. She denies known history of chronic obstructive pulmonary disease. However, she is listed to be taking inhalers at home, and she recently was also prescribed oxygen. 6. Cannabis use disorder. She was counseled about stopping cannabis use. 7. Acute encephalopathy on presentation due to acute hypercapnic respiratory failure has improved. She is alert and oriented x3. She was counseled about discussing with her regular doctor about taking her off benzodiazepine in the future as tolerated. DISPOSITION: Continue to monitor patient in PVC. I will add guaifenesin, discontinue her [place] catheter and physical therapy. Will be seeing her hopefully today. Plan of care discussed with her. She was allowed to ask questions. All questions have been answered. TIME SPENT: 35 minutes have been spent. cc: Chavez Bruno MD MTDD
[2019-08-11] MEDS: PROTONIX IV SCH (14:16)
[2019-08-11] MEDS: SODIUM CHLORIDE 0.9% INJ SCH (14:16)
[2019-08-11] MEDS: LACTULOSE PO SCH ×2 (14:17→20:45)
[2019-08-11] MEDS: XARELTO PO SCH (18:31)
[2019-08-11] MEDS: ZYPREXA PO SCH (20:32)
[2019-08-11] MEDS: PRAVACHOL PO SCH (20:32)
[2019-08-11] MEDS: XALATAN 0.005% OPH SOLN BOTH EYES SCH (20:33)
[2019-08-12] MEDS: ZOSYN 3.375 GM in NS 50 ML IV SCH ×4 (02:12→23:47)
[2019-08-12 06:15] LABS: BASO# 0.05 X1000 (0.0-0.2); BASO% 0.5 % (0.0-0.8); EOS% 3.9 % (0.0-10.0); HEMATOCRIT 48.4 % (37.0-47.0); HEMOGLOBIN 15.5 g/dL (12.0-16.0); IMM GRAN# 0.03 X1000 (0.0-0.04); IMM GRAN% 0.3 % (0.0-0.5); LYMPH# 2.03 X1000 (1.2-3.4); LYMPH% 19.9 % (20.5-51.1); MCH 29.1 PG (27-31); MCV 90.8 FL (81-99); MONO# 1.22 X1000 (0.11-0.59); MPV 9.1 FL (7.4-10.4); NEUT# 6.46 X1000 (1.4-6.5); NEUT% 63.4 % (42.2-75.2); PLT 447 X1000 (130-400); RBC 5.33 XMIL (4.2-5.4); RDW 15.1 % (11.5-14.5); WBC 10.19 X1000 (4.8-10.8)
[2019-08-12 06:26] LABS: ALB/GLOB RATIO 1.1; ALBUMIN 3.6 g/dL (3.5-5.0); CALCIUM 9.2 mg/dL (8.8-10.2); CREATININE 1.2 mg/dL (0.5-0.9); POTASSIUM 3.4 mmol/L (3.5-5.1); TOTAL BILIRUBIN 0.37 mg/dL (0.20-1.00); TOTAL PROTEIN 6.8 g/dL (6.3-8.3)
[2019-08-12] MEDS: HUMULIN R SUBQ SCH ×4 (06:36→21:33)
--- NOTE | 2019-08-12 06:52 | Diag Imaging Result Doc PS360 ---
EXAM: CHEST-PORTABLE 08/12/2019 HISTORY: dyspnea TECHNIQUE: AP portable at 0513 COMMENT: There is blunting of the right costophrenic angle. There is hazy opacity over the right lower lobe. This has not changed since 08/11/2019 but is slightly improved compared to 08/10/2019. IMPRESSION: Right pleural effusion and lower lobe atelectasis. Electronically signed by Rodriguez Blankenship 08/12/2019 6:50 AM
[2019-08-12] MEDS: MUCOMYST 20% INH SCH ×2 (07:39→20:12)
[2019-08-12] MEDS: DUONEB (A & A) INH SCH ×5 (07:39→23:35)
[2019-08-12] MEDS: COSOPT OPHTH SOLN BOTH EYES SCH ×2 (10:15→18:06)
[2019-08-12] MEDS: MIRALAX PO SCH ×2 (10:15→20:03)
[2019-08-12] MEDS: ABILIFY PO SCH (10:16)
[2019-08-12] MEDS: LASIX PO SCH (10:16)
[2019-08-12] MEDS: BIDEX PO SCH ×4 (10:16→20:03)
[2019-08-12] MEDS: THERA M PLUS PO SCH (10:17)
[2019-08-12] MEDS: DULCOLAX PR SCH ×2 (10:17→20:02)
[2019-08-12] MEDS: CARDIZEM CD PO SCH (10:17)
[2019-08-12] MEDS: LACTULOSE PO SCH ×2 (10:17→20:02)
[2019-08-12] MEDS: NICODERM PATCH TD SCH (13:41)
[2019-08-12] MEDS: PRILOSEC PO SCH (13:41)
--- NOTE | 2019-08-12 16:09 | PROGRESS NOTE ---
DATE: 08/12/2019 SUBJECTIVE: The patient is sitting up in bed. She states that she feels much better today. She states that she is coughing less. No acute events noted overnight. OBJECTIVE: Vital Signs: Temperature 97.8 degrees, blood pressure 123/82, heart rate 76, respirations 19, O2 saturations 96% on 4 L nasal cannula. Intake 880. Output 2.5 L. General: This is a chronically ill-appearing elderly female lying in bed in no acute distress. Heart: S1, S2 normal. Lungs: Equal air entry bilaterally. No wheezing. Abdomen: Positive bowel sounds. Soft, nontender, nondistended. Extremities: No edema. No cyanosis. Neurologic: The patient is alert and oriented x3. LABS: Hemoglobin 15, hematocrit 48, white blood cell count 10, platelets 447,000. Sodium 137, potassium 3.4, chloride 93, CO2 32, BUN 18, creatinine 1.2, glucose 125. IMAGING: Chest x-ray shows a right pleural effusion and lower lobe atelectasis. ASSESSMENT AND PLAN: 1. Acute on chronic hypoxemic respiratory failure. Likely secondary to pneumonia and a parapneumonic effusion. Continue with broad-spectrum antibiotics and bronchodilator therapy. 2. Right lung aspiration pneumonia. Continue with antibiotics, bronchodilator therapy and supplemental oxygen. 3. Ileus. Improved. The patient had a bowel movement this morning. Continue with laxatives. 4. Anxiety. Continue on the current medication. 5. Paroxysmal atrial fibrillation. The patient is in normal sinus rhythm. Continue on diltiazem and Xarelto. 6. Diabetes mellitus type 2. Continue on sliding scale insulin. 7. Hypokalemia. We will replace the patient's potassium. 8. Cannabis use disorder. The patient has been counseled about cessation. 9. Metabolic encephalopathy. Resolved. 10. Tobacco dependence. The patient has been counseled about cessation. 11. Deep vein thrombosis prophylaxis. The patient is on Xarelto. 12. Disposition. Continue with physical therapy. cc: Norma Lambert MD
[2019-08-12] MEDS: XARELTO PO SCH (18:06)
[2019-08-12] MEDS: COLACE PO SCH (20:03)
[2019-08-12] MEDS: XALATAN 0.005% OPH SOLN BOTH EYES SCH (20:03)
[2019-08-12] MEDS: PRAVACHOL PO SCH (20:04)
[2019-08-12] MEDS: ZYPREXA PO SCH (20:04)
[2019-08-13 05:59] LABS: BASO# 0.05 X1000 (0.0-0.2); BASO% 0.5 % (0.0-0.8); EOS# 0.36 X1000 (0.0-0.7); EOS% 3.9 % (0.0-10.0); HEMATOCRIT 49.9 % (37.0-47.0); HEMOGLOBIN 16.1 g/dL (12.0-16.0); IMM GRAN# 0.04 X1000 (0.0-0.04); IMM GRAN% 0.4 % (0.0-0.5); LYMPH# 1.62 X1000 (1.2-3.4); LYMPH% 17.7 % (20.5-51.1); MCH 29.1 PG (27-31); MCHC 32.3 g/dL (33-37); MCV 90.1 FL (81-99); MONO# 1.07 X1000 (0.11-0.59); MONO% 11.7 % (1.7-9.3); MPV 9.1 FL (7.4-10.4); NEUT# 6.01 X1000 (1.4-6.5); NEUT% 65.8 % (42.2-75.2); PLT 481 X1000 (130-400); RBC 5.54 XMIL (4.2-5.4); RDW 14.9 % (11.5-14.5); WBC 9.15 X1000 (4.8-10.8)
[2019-08-13] MEDS: ZOSYN 3.375 GM in NS 50 ML IV SCH ×4 (06:01→23:50)
[2019-08-13] MEDS: PRILOSEC PO SCH ×2 (06:01→06:04)
[2019-08-13] MEDS: HUMULIN R SUBQ SCH ×3 (06:20→17:54)
[2019-08-13 06:27] LABS: CALCIUM 9.3 mg/dL (8.8-10.2); POTASSIUM 3.7 mmol/L (3.5-5.1)
[2019-08-13] MEDS: MUCOMYST 20% INH SCH ×2 (07:51→20:00)
[2019-08-13] MEDS: DUONEB (A & A) INH SCH ×5 (07:51→23:30)
[2019-08-13] MEDS: LASIX PO SCH (09:01)
[2019-08-13] MEDS: CARDIZEM CD PO SCH (09:02)
[2019-08-13] MEDS: NICODERM PATCH TD SCH (09:02)
[2019-08-13] MEDS: COLACE PO SCH ×2 (09:02→21:43)
[2019-08-13] MEDS: ABILIFY PO SCH (09:02)
[2019-08-13] MEDS: BIDEX PO SCH ×4 (09:02→21:43)
[2019-08-13] MEDS: MIRALAX PO SCH (09:02)
[2019-08-13] MEDS: THERA M PLUS PO SCH (09:02)
[2019-08-13] MEDS: COSOPT OPHTH SOLN BOTH EYES SCH ×2 (09:03→17:36)
[2019-08-13] MEDS ORDERED: AYR NASAL SPRAY NAS PRN (11:15)
[2019-08-13] MEDS: DULCOLAX PR SCH (11:28)
[2019-08-13] MEDS: LACTULOSE PO SCH (11:29)
[2019-08-13] MEDS: XARELTO PO SCH (17:36)
[2019-08-13] MEDS: XALATAN 0.005% OPH SOLN BOTH EYES SCH (21:43)
[2019-08-13] MEDS: ZYPREXA PO SCH (21:43)
[2019-08-13] MEDS: PRAVACHOL PO SCH (21:43)
--- NOTE | 2019-08-14 00:59 | PROGRESS NOTE ---
DATE: 08/13/2019 SUBJECTIVE: The patient is sitting up in a chair. She states that she feels much better today. OBJECTIVE: Vital Signs: Temperature 98 degrees, blood pressure 126/86, heart rate 70, respirations 18, O2 saturation 96% on 4 L nasal cannula. General: This is a chronically ill- appearing elderly female sitting in a chair, in no acute distress. Heart: S1, S2 normal. Regular rate and rhythm. Lungs: Equal air entry bilaterally. No wheezing. No rales. Abdomen: Positive bowel sounds. Soft, nontender, nondistended. Extremities: Trace pedal edema. Neurologic: The patient is alert and oriented x3. LABS: White blood cell count 9.1, hemoglobin 16, hematocrit 49, platelets 481,000. BUN 21, creatinine 1; sodium 136, potassium 3.7, chloride 93, CO2 is 30, chloride 110. ASSESSMENT AND PLAN: 1. Acute on chronic hypoxemic respiratory failure. Improved. 2. Right lung aspiration pneumonia. Continue with antibiotics, bronchodilator therapy and supplemental oxygen. We will check a chest x-ray tomorrow. 3. Ileus. Resolved. Continue with laxative therapy. 4. Paroxysmal atrial fibrillation. The patient is in normal sinus rhythm. Continue on Xarelto and diltiazem. 5. Diabetes mellitus type 2. Continue on sliding scale insulin. 6. Cannabis use disorder. The patient has been counseled about cessation. 7. Metabolic encephalopathy. Resolved. 8. Tobacco dependence. The patient has been counseled about cessation. 9. Deep vein thrombosis prophylaxis. The patient is on Xarelto. 10. Disposition. We will likely plan to discharge the patient home tomorrow. cc: Norma Lambert MD
[2019-08-14] MEDS: DULCOLAX PR SCH ×2 (01:11→12:45)
[2019-08-14] MEDS: LACTULOSE PO SCH ×2 (01:12→12:47)
[2019-08-14] MEDS: HUMULIN R SUBQ SCH ×2 (01:12→06:52)
[2019-08-14] MEDS: MIRALAX PO SCH ×2 (01:13→12:46)
[2019-08-14] MEDS: ZOSYN 3.375 GM in NS 50 ML IV SCH (05:56)
[2019-08-14 07:10] LABS: BASO# 0.03 X1000 (0.0-0.2); BASO% 0.3 % (0.0-0.8); EOS# 0.34 X1000 (0.0-0.7); EOS% 3.4 % (0.0-10.0); HEMATOCRIT 50.8 % (37.0-47.0); HEMOGLOBIN 16.5 g/dL (12.0-16.0); IMM GRAN# 0.04 X1000 (0.0-0.04); IMM GRAN% 0.4 % (0.0-0.5); LYMPH# 1.37 X1000 (1.2-3.4); LYMPH% 13.8 % (20.5-51.1); MCH 29.1 PG (27-31); MCHC 32.5 g/dL (33-37); MCV 89.6 FL (81-99); MONO# 1.24 X1000 (0.11-0.59); MONO% 12.5 % (1.7-9.3); MPV 9.3 FL (7.4-10.4); NEUT# 6.92 X1000 (1.4-6.5); NEUT% 69.6 % (42.2-75.2); PLT 413 X1000 (130-400); RBC 5.67 XMIL (4.2-5.4); RDW 14.9 % (11.5-14.5); WBC 9.94 X1000 (4.8-10.8)
--- NOTE | 2019-08-14 07:28 | Diag Imaging Result Doc PS360 ---
EXAM: CHEST-2 VIEWS INDICATION: pneumonia TECHNIQUE: 2 views COMPARISON: 08/12/2019 FINDINGS: There are bilateral small pleural effusions. The effusion on the right has decreased during the interval. Adjacent atelectasis at the right lower lung zone has improved slightly. No new consolidation is appreciated. Cardiac silhouette is stable. IMPRESSION: Interval improvement of small right pleural effusion and right basilar atelectasis. Electronically signed by Mack Tafoya 08/14/2019 7:26 AM
[2019-08-14] MEDS: PRILOSEC PO SCH (07:29)
[2019-08-14 07:38] LABS: PHOSPHORUS 3.6 mg/dL (2.7-4.5)
[2019-08-14 07:47] LABS: CALCIUM 9.6 mg/dL (8.8-10.2); CREATININE 1.1 mg/dL (0.5-0.9); POTASSIUM 3.5 mmol/L (3.5-5.1)
[2019-08-14] MEDS: BIDEX PO SCH (08:38)
[2019-08-14] MEDS: THERA M PLUS PO SCH (08:38)
[2019-08-14] MEDS: COLACE PO SCH (08:38)
[2019-08-14] MEDS: LASIX PO SCH (08:38)
[2019-08-14] MEDS: ABILIFY PO SCH (08:38)
[2019-08-14] MEDS: CARDIZEM CD PO SCH (08:38)
[2019-08-14] MEDS: NICODERM PATCH TD SCH (08:38)
[2019-08-14] MEDS: DUONEB (A & A) INH SCH (08:59)
[2019-08-14] MEDS: MUCOMYST 20% INH SCH (08:59)
[2019-08-14] MEDS ORDERED: HUMULIN R SUBQ SCH (10:13)
[2019-08-14 11:18] VITALS: BP 114/83
[2019-08-14] MEDS: COSOPT OPHTH SOLN BOTH EYES SCH (11:38)
--- NOTE | 2019-08-15 09:43 | DISCHARGE SUMMARY ---
ADMISSION DATE: 08/09/2019 DISCHARGE DATE: 08/14/2019 FINAL DISCHARGE DIAGNOSES: 1. Acute on chronic hypoxemic and hypercapnic respiratory failure. 2. Right lung aspiration pneumonia. 3. Ileus. 4. Paroxysmal atrial fibrillation. 5. Diabetes mellitus type 2. 6. Cannabis use disorder. 7. Metabolic encephalopathy. 8. Tobacco dependence. HOSPITAL COURSE: Ms. Rebecca Lewis is a 68-year-old female with a history of chronic hypoxemic respiratory failure who presented to the ER in respiratory distress. In the ER, chest x-ray was done that revealed a right lung pneumonia and the patient was admitted to the hospitalist service. Blood cultures were obtained as well as a sputum culture and the patient was started on broad- spectrum antibiotics. Initially, the patient required BiPAP support. With antibiotics and supplemental oxygen, the patient improved. The patient was counseled about smoking cessation. Eventually, the patient was weaned down to her baseline level of supplemental oxygen. She was also seen by physical therapy. The patient did develop an ileus. However, with the initiation of laxatives, she was able to have regular bowel movements. The patient did well with physical therapy and home health was recommended. The patient continued to improve clinically and was ultimately cleared for discharge home on 08/14/2019. DISCHARGE MEDICATIONS: 1. Colace 100 mg oral twice a day. 2. Augmentin 875/125 mg 1 tab oral twice a day. 3. Multivitamin 1 tab oral daily. 4. Zofran 4 mg oral every 6 hours p.r.n. for vomiting. 5. Xarelto 20 mg oral at supper. 6. Abilify 5 mg oral every morning. 7. Cardizem CD 120 mg oral daily. 8. Cosopt 8 mg to both eyes every 12 hours. 9. Mirtazapine 30 mg oral every evening. 10. Valium 5 mg oral 3 times a day p.r.n. for anxiety. 11. Pravastatin 40 mg oral at bedtime. 12. Cymbalta 20 mg oral twice a day. 13. Olanzapine 5 mg oral every evening. 14. Seroquel 50 mg oral 3 times a day. 15. Combivent 1 puff every 4 hours p.r.n. for shortness of breath. DISCHARGE DIET: Low-sodium diet. ACTIVITY: As tolerated. FOLLOW-UP INSTRUCTIONS: The patient will need to follow up with her primary care physician in 1 to 2 weeks. cc: Norma Lambert MD
== END 2019-08-14 13:12 | disposition home health service (06) | DRG 177 ==
LOC: ED 09:37 → EDIPHOLD 18:10 → SUATTDRO 18:10 → ICU 21:00 → 2N 08-10 12:42 → 4N 08-13 18:28
PROVIDERS: ATTEND Internal Medicine